=== PATIENT | male | born 1960 ===

== ENCOUNTER 2016-11-07 19:32 | Observation (INO) | payer MEDICAID, OTHER ==
[2016-11-07 19:40] VITALS: BP 135/96; RESP 17; TEMP 99.9
[2016-11-07] MEDS ORDERED: Clindamycin 300 MG in Sodium Chloride 0.9% 100 ML IVPB STA (19:58)
[2016-11-07] MEDS ORDERED: Vancomycin 1 g Inj ONE (20:05)
[2016-11-07] MEDS ORDERED: Sodium Chloride 0.9% 1,000 ML IV STA (20:10)
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
[2016-11-07 20:39] LABS: BASO # 0.1 K/uL (0.0-0.2); BASO % 1.2 % (0.0-2.0); EOS # 0.1 K/uL (0.0-0.7); EOS % 2.1 % (0.0-4.0); HEMOGLOBIN 13.8 g/dL (12.0-18.0); LYMPH % 49.1 % (20.0-40.0); MEAN CELL VOLUME 86.3 fl (80.0-94.0); MEAN CORPUSCULAR HEMOGLOBIN 28.9 pg (27.0-31.0); MEAN CORPUSCULAR HGB CONC 33.5 g/dL (33.0-37.0); MEAN PLATELET VOLUME 7.9 fl (7.2-11.7); MONO # 0.5 K/uL (0.0-0.8); MONO % 8.4 % (0.0-10.0); NEUT # 2.4 K/uL (1.8-7.0); NEUT % 39.2 % (50.0-75.0); NRBC % 0.1 % (0.0-0.0); RBC 4.78 Mil/uL (4.40-5.90); RED CELL DISTRIBUTION WIDTH 16.4 % (11.5-14.5); WHITE BLOOD COUNT 6.2 K/uL (4.8-10.8)
[2016-11-07 20:55] LABS: BARBITURATES, UR NEGATIVE (NEGATIVE); BENZODIAZEPINES, UR NEGATIVE (NEGATIVE); OPIATES, UR POSITIVE (NEGATIVE); PHENCYCLIDINE, UR NEGATIVE (NEGATIVE)
[2016-11-07 21:14] LABS: ALB/GLOB RATIO 1.1 (1.0-2.1); ALBUMIN 4.8 g/dL (3.5-5.0); ALT/SGPT 182 U/L (21-72); AST/SGOT 313 U/L (17-59); BLOOD UREA NITROGEN 8 mg/dl (9-20); CALCIUM 9.5 mg/dL (8.4-10.2); GFR AFRICAN-AMERICAN > 60; GFR NON-AFRICAN AMERICAN > 60
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
[2016-11-08 00:06] VITALS: PULSE 92; O2SAT 98
--- NOTE | 2016-11-08 11:13 | RAD ---
PROCEDURE: Left small (pinky) finger radiographs 11/07/2016 at 2200 hours. HISTORY: Post reduction COMPARISON: Comparison made with radiographs of the left hand 11/07/2016 at 1947 hours TECHNIQUE: AP radiograph of the left hand, as well as spot oblique and lateral images of left small finger were obtained through overlying radiopaque splint which partially obscures fine soft tissue and bone detail. . . FINDINGS: There has been interval reduction previously noted dorsal and laterally dislocated middle phalanx with respect to the proximal phalanx 5th finger. . There there is a small fracture fragment seen adjacent to the distal palmar surface of the proximal phalanx consistent with small avulsion fracture. There is a 2nd tiny smaller bony density adjacent within the dorsal soft tissues adjacent to the base of the proximal phalanx 5th finger. Soft tissue swelling is present. Impression: Interval reduction previously noted dorsal and laterally dislocated middle phalanx with respect to the proximal phalanx. Small fracture fragment seen adjacent to the palmar surface of the proximal phalanx 5th finger. There is a 2nd tiny suspected avulsion fracture fragment within the dorsal soft tissues adjacent to the base proximal phalanx 5th finger. Note this report was placed in PA review folder for followup.
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
== END 2016-11-08 00:05 | disposition home or self-care (01) ==
LOC: H.ER 19:32 → H.EROBSV 19:45
PROVIDERS: ADMIT Emergency Medicine; ATTEND Emergency Medicine
DX: S02.82XA Fracture of other specified skull and facial bones, left side, initial encounter for closed fracture (principal); S62.607A Fracture of unspecified phalanx of left little finger, initial encounter for closed fracture; Y04.0XXA Assault by unarmed brawl or fight, initial encounter; Y93.9 Activity, unspecified; Y92.9 Unspecified place or not applicable; Y99.9 Unspecified external cause status; S61.217A Laceration without foreign body of left little finger without damage to nail, initial encounter

== ENCOUNTER 2018-04-25 11:20 | Emergency (ER) | payer MEDICAID ==
[2018-04-25] MEDS ORDERED: Oxycodone/Acetaminophen 5/325 mg Tab PO STA (12:41)
--- NOTE | 2018-04-25 12:47 | ED PDOC ---
HPI: Back Time Seen by Provider: 04/25/18 12:08 Chief Complaint (Nursing): Back Pain Chief Complaint (Provider): Back Pain History Per: Patient History/Exam Limitations: no limitations Onset/Duration Of Symptoms: Days (x 1 month), Waxing/Waning Quality Of Discomfort: "Pain" Previous Symptoms: Back Pain Additional Complaint(s): 57 year old male with a history of anxiety and substance abuse presents to the ED with back pain associated with difficulty walking for the last month. Patient reports that he went to [facility] for back pain and inability to walk and was admitted for five days due to a spine infection. He was transferred for [facility] for a rehabilitation. He admits that he has ran out of pain medication and is still taking antibiotics PO. He take Clonidine for blood pressure as well as Gabapentin. Offers no other complaints. PMD: none provided - Risk Factors AAA Risk Factors: Pos: Older Than 49 Years Of Age Past Medical History Reviewed: Historical Data, Nursing Documentation, Vital Signs Vital Signs: Last Vital Signs Temp 99.6 F 04/25/18 11:24 Pulse 109 H 04/25/18 12:08 Resp 15 04/25/18 11:24 BP 131/78 04/25/18 11:24 Pulse Ox 98 04/25/18 11:24 - Medical History PMH: Anxiety Denies: Diabetes, Hepatitis, HIV, HTN, Chronic Kidney Disease, Seizures, Sexually Transmitted Disease - Surgical History Surgical History: No Surg Hx - Family History Family History: States: Unknown Family Hx - Immunization History Hx Tetanus Toxoid Vaccination: No Hx Influenza Vaccination: Yes Hx Pneumococcal Vaccination: No - Home Medications Home Medications: Ambulatory Orders Medication Instructions Recorded Gabapentin [Neurontin] 300 mg PO TID #90 cap 01/05/18 QUEtiapine [SEROquel] 50 mg PO HS #30 tab 01/05/18 cloNIDine [Catapres] 0.1 mg PO BID PRN #14 tab 01/05/18 traZODone [Desyrel] 150 mg PO HS PRN #30 tab 01/05/18 Ibuprofen [Motrin Tab] 600 mg PO Q6H #20 tab 02/16/18 Multivitamins [Hexavitamin] 1 tab PO DAILY tab 02/25/18 Thiamine [Vitamin B1 Tab] 100 mg PO DAILY tab 02/25/18 Cyclobenzaprine [Flexeril] 10 mg PO HS #7 tab 04/25/18 Naproxen 500 mg PO BID #30 tab 04/25/18 - Allergies Allergies/Adverse Reactions: Allergies Allergy/AdvReac Type Severity Reaction Status Date / Time Penicillins Allergy ITCHING Verified 04/21/18 12:35 Review of Systems ROS Statement: Except As Marked, All Systems Reviewed And Found Negative Musculoskeletal: Positive for: Back Pain (associated with difficulty walking ) Physical Exam - Reviewed Nursing Documentation Reviewed: Yes Vital Signs Reviewed: Yes - Physical Exam Appears: Positive for: No Acute Distress Head Exam: Positive for: ATRAUMATIC Skin: Positive for: Normal Color, Warm, Dry Eye Exam: Positive for: EOMI, Normal appearance, PERRL Neck: Positive for: Normal, Painless ROM, Supple Cardiovascular/Chest: Positive for: Regular Rate, Rhythm. Negative for: Murmur Respiratory: Positive for: Normal Breath Sounds. Negative for: Respiratory Distress Gastrointestinal/Abdominal: Positive for: Normal Exam, Soft. Negative for: Tenderness Back: Positive for: Other (lower back tenderness; negative straight leg test) Extremity: Positive for: Normal ROM (x 4). Negative for: Deformity Neurologic/Psych: Positive for: Alert, Oriented (x 3). Negative for: Motor/Sensory Deficits - ECG O2 Sat by Pulse Oximetry: 98 (RA) Pulse Ox Interpretation: Normal - Progress Re-evaluation Time: 14:53 Condition: Re-examined, Improved Medical Decision Making Medical Decision Makin:41 Impression: chronic back pain Initial plan: --Flexeril 10 mg PO --Toradol 30 mg IM --Percocet 1 tab PO Scribe Attestation: Documented by Georgette Gipson acting as a scribe for Jarod Kevin MD Provider Scribe Attestation: All medical record entries made by the Scribe were at my direction and personally dictated by me. I have reviewed the chart and agree that the record accurately reflects my personal performance of the history, physical exam, medical decision making, and the department course for this patient. I have also personally directed, reviewed, and agree with the discharge instructions and disposition. Disposition - Clinical Impression Clinical Impression: Back pain - Patient ED Disposition Is Patient to be Admitted: No Doctor Will See Patient In The: Office Counseled Patient/Family Regarding: Studies Performed, Diagnosis, Need For Followup - Disposition Referrals: [facility] [Outside] Disposition: Routine/Home Disposition Time: 14:56 Condition: GOOD Additional Instructions: TORO LARES, thank you for letting us take care of you today. Your provider was Jarod Kevin MD and you were treated for BACK PAIN. The emergency medical care you received today was directed at your acute symptoms. If you were prescribed any medication, please fill it and take as directed. It may take several days for your symptoms to resolve. Return to the Emergency Department if your symptoms worsen, do not improve, or if you have any other problems. Please contact your doctor or call one of the physicians/clinics you have been referred to that are listed on the Patient Visit Information form that is included in your discharge packet. Bring any paperwork you were given at discharge with you along with any medications you are taking to your follow up visit. Our treatment cannot replace ongoing medical care by a primary care provider outside of the emergency department. Thank you for allowing the [facility] team to be part of your care today. If you had an X-Ray or CT scan: A Radiologist will review the ED reading if any change in treatment is needed we will contact you. If you had a blood, urine, or wound culture: It will take several days for the results, if any change in treatment is needed we will contact you. If you had an STI test: It will take 48 hours for the results. Please call after 1 week if you have not heard back. Instructions: Low Back Pain (DC)
[2018-04-25] MEDS ORDERED: Oxycodone/Acetaminophen 5/325 mg Tab ONE (12:50)
[2018-04-25 15:40] VITALS: BP 109/66; PULSE 101; RESP 16; TEMP 98.8; O2SAT 96
== END 2018-04-25 16:00 | disposition home or self-care (01) ==
LOC: H.ER 11:20
DX: M54.9 Dorsalgia, unspecified (principal); G89.29 Other chronic pain; Z88.0 Allergy status to penicillin
CPT/HCPCS: 96372; 99284; J1885

== ENCOUNTER 2018-05-12 16:28 | Inpatient (IN) | payer MEDICAID ==
[2018-05-12] MEDS ORDERED: Naloxone 0.4 mg/ml Inj (Adult) IVP ONE (17:48)
[2018-05-12] MEDS ORDERED: Sodium Chloride 0.9% 1,000 ML IV STA ×2 (17:48→19:19)
[2018-05-12] MEDS ORDERED: Naloxone 0.4 mg/ml Inj (Adult) IVP STA ×2 (18:01→18:28)
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
[2018-05-12 18:52] LABS: BASO % 0.3 % (0.0-2.0); EOS % 0.3 % (0.0-4.0); HEMOGLOBIN 11.4 g/dL (12.0-18.0); LYMPH % 20.9 % (20.0-40.0); MEAN CELL VOLUME 83.7 fl (80.0-94.0); MEAN CORPUSCULAR HEMOGLOBIN 27.3 pg (27.0-31.0); MEAN CORPUSCULAR HGB CONC 32.6 g/dL (33.0-37.0); MEAN PLATELET VOLUME 8.4 fl (7.2-11.7); MONO # 0.9 K/uL (0.0-0.8); MONO % 9.1 % (0.0-10.0); NEUT # 6.6 K/uL (1.8-7.0); NEUT % 69.4 % (50.0-75.0); NRBC % 0.1 % (0.0-0.0); RBC 4.17 Mil/uL (4.40-5.90); RED CELL DISTRIBUTION WIDTH 15.3 % (11.5-14.5); WHITE BLOOD COUNT 9.5 K/uL (4.8-10.8)
[2018-05-12 19:02] LABS: ALBUMIN 4.6 g/dL (3.5-5.0); ALT/SGPT 34 U/L (21-72); AST/SGOT 51 U/L (17-59); BLOOD UREA NITROGEN 13 mg/dl (9-20); CALCIUM 9.7 mg/dL (8.4-10.2); GFR NON-AFRICAN AMERICAN > 60
[2018-05-12] MEDS ORDERED: Potassium Chloride 20 mEq ER Tab PO ONE ×2 (19:20→22:35)
--- NOTE | 2018-05-12 19:34 | ED PDOC ---
- Laboratory Results Result Diagrams: 05/12/18 18:37 05/12/18 18:37 Lab Results: Total Bilirubin 1.1 mg/dl (0.2-1.3) 05/12/18 18:37 AST 51 U/L (17-59) 05/12/18 18:37 ALT 34 U/L (21-72) 05/12/18 18:37 Alkaline Phosphatase 137 U/L (38-126) H 05/12/18 18:37 Total Protein 9.3 G/DL (6.3-8.2) H 05/12/18 18:37 Albumin 4.6 g/dL (3.5-5.0) 05/12/18 18:37 Globulin 4.7 gm/dL (2.2-3.9) H 05/12/18 18:37 Albumin/Globulin Ratio 1.0 (1.0-2.1) 05/12/18 18:37 - ECG O2 Sat by Pulse Oximetry: 96 (RA) Pulse Ox Interpretation: Normal Medical Decision Making Medical Decision Making: Time: 190 --Patient is still tachycardic with an anion gap of 23. Patient signed out to this provider by Dr. Martinez, pending dissolution of tachycardia and anion gap, then reevaluation. Time: 14 --CTA chest FINDINGS: Bilateral basilar atelectatic airspace disease of the lower lobes. Mild subsegmental consolidation of the right lower lobe. Normal enhancement of the main pulmonary artery and right and left pulmonary arteries. Normal enhancement of the bilateral peripheral pulmonary arteries. There is no demonstrated pulmonary embolism. Normal thoracic aorta and visualized great vessels. There is no demonstrated aortic dissection. Normal heart and pericardium. Normal mediastinum. Normal hilar regions. Normal visualized trachea and thickening bronchi. The remaining lungs are well expanded. Normal remaining pulmonary parenchyma. Normal pleura. Normal chest wall structures. Normal osseous structures. Mild hepatomegaly. IMPRESSION: No demonstrated pulmonary embolism or arterial dissection. Bilateral basilar atelectatic airspace disease of the lower lobes. Mild subsegmental consolidation of the right lower lobe. This can be secondary to subsegmental atelectasis. Differential diagnosis includes a developing pneumonia. Look to patient presentation, such as presence or absence of fever and leukocytosis for confirmation of which is more likely in this particular patient presently, recognizing that both conditions occasionally exist at the same time. Time: 0037 --Given patient's presentation of overdose, provider suspects aspiration pneumonia. Patient had recent hospital admission, may also relate to healthcare- associated pneumonia. Patient to be admitted for further treatment. Case discussed with Dr. Carmona who accepts patient. Clinical Impression: Healthcare-associated pneumonia Scribe Attestation: Documented by Laureen Palmer and Marbella Serna, acting as scribes for Michel Arellano MD Provider Scribe Attestation: All medical record entries made by the Scribe were at my direction and personally dictated by me. I have reviewed the chart and agree that the record accurately reflects my personal performance of the history, physical exam, medical decision making, and the department course for this patient. I have also personally directed, reviewed, and agree with the discharge instructions and disposition. Disposition Discussed With : Jesus Mnauel Carmona Counseled Patient/Family Regarding: Studies Performed, Diagnosis - Clinical Impression Clinical Impression: HCAP (healthcare-associated pneumonia) - POA Present On Arrival: None - Disposition Disposition: Admitted as In-Patient Disposition Time: 00:37 Condition: FAIR Forms: [employer] (Citizen Of [place])
[2018-05-12 19:38] LABS: ABG ALLEN TEST YES; ARTERIAL BLOOD GAS HCO3 25.2 mmol/L (21-28); ARTERIAL BLOOD GAS O2 SAT 90.9 % (95-98); ARTERIAL BLOOD GAS PCO2 40 mm/Hg (35-45); ARTERIAL BLOOD GAS PH 7.41 (7.35-7.45); ARTERIAL BLOOD GAS PO2 52 mm/Hg (80-100); ARTERIAL BLOOD GAS TCO2 26.6 mmol/L (22-28)
[2018-05-12] MEDS ORDERED: Iodixanol 320 MG/ML 100 ML BOTTLE IV ONE (23:06)
[2018-05-12] MEDS ORDERED: Sodium Chloride 0.9% 50 ML IV ONE (23:06)
[2018-05-13] MEDS ORDERED: Gentamicin 80 mg/2mL Inj. IVPB STA (00:29)
[2018-05-13] MEDS ORDERED: Ciprofloxacin 400mg/200ml D5W 400 MG/200 ML BAG IVPB STA (00:29)
[2018-05-13] MEDS ORDERED: Clindamycin 150 mg/mL Inj IV STA (00:34)
[2018-05-13] MEDS ORDERED: Clindamycin 600mg/50ml D5W 600 MG/50 ML VIAL IVPB STA (00:36)
[2018-05-13] MEDS ORDERED: Ciprofloxacin 400mg/200ml D5W 400 MG/200 ML BAG IVPB ONE (00:47)
[2018-05-13] MEDS ORDERED: Gentamicin 420 MG in Sodium Chloride 0.9% 100 ML IVPB ONE (01:30)
[2018-05-13] MEDS ORDERED: guaiFENesin DM 200 mg-20 mg/10 ml UD PO PRN (05:47)
[2018-05-13] MEDS: Dextrose 5%/Lactated Ringer's 1,000 ML IV SCH (06:37)
--- NOTE | 2018-05-13 09:39 | CT ---
Date of service: 05/12/2018 PROCEDURE: CT Chest with contrast (Pulmonary Angiogram) HISTORY: chest pain r/o PE COMPARISON: None available. TECHNIQUE: Axial computed tomography images were obtained of the chest in the pulmonary arterial phase of enhancement. Coronal and sagittal reformatted images were created and reviewed. Intravenous contrast dose: Visipaque 320, 90 cc Radiation dose: Total exam DLP = 283.48 mGy-cm. This CT exam was performed using one or more of the following dose reduction techniques: Automated exposure control, adjustment of the mA and/or kV according to patient size, and/or use of iterative reconstruction technique. FINDINGS: PULMONARY ARTERIES: Somewhat suboptimal contrast opacification of the central pulmonary arteries with opacification appearing slightly less than the aorta. No prominent central pulmonary embolus appreciable. No severe segmental pulmonary artery filling defects appreciable. AORTA: No acute findings. No thoracic aortic aneurysm. Calcific atherosclerotic changes are seen related to the thoracic aorta. LUNGS: Limited right lower lobe infiltrate may be developing with remaining lung alegria clear. Central airways are clear.. A 2.7 mm noncalcified nodule is seen at the right upper lobe and image 45 series 5 with no additional masses bilaterally. PLEURAL SPACES: Unremarkable. No effusion or pneumothorax. HEART: Unremarkable. No cardiomegaly. No significant pericardial effusion. LYMPH NODES: No lymphadenopathy. BONES, CHEST WALL: Unremarkable. No fracture or destructive lesion warranted. OTHER FINDINGS: Unremarkable. IMPRESSION: Somewhat suboptimal pulmonary arterial enhancement with no gross pulmonary embolus identified as discussed above. Lesser evaluation of the segmental pulmonary artery branches. Village perfusion lung scan available for follow-up if clinically. Potential early development of right lower lobe pulmonary infiltrate. Remaining lung alegria clear of active airspace disease. 2.7 mm noncalcified nodule right upper lobe. Preliminary report provided by Angelito, 05/13/1911 15 a.m..
[2018-05-13] MEDS ORDERED: Albuterol-Ipratrop 3 mg / 0.5 (3 ml) UD ONE ×2 (13:18→16:10)
[2018-05-13] MEDS ORDERED: guaiFENesin 100 mg/5 ml Syrup UD ONE (13:19)
[2018-05-13] MEDS: Albuterol-Ipratrop 3 mg / 0.5 (3 ml) UD INH SCH ×2 (13:29→16:10)
[2018-05-13] MEDS: guaiFENesin DM 200 mg-20 mg/10 ml UD PO SCH ×3 (13:29→23:13)
--- NOTE | 2018-05-13 13:38 | CP.PCM.CON ---
History of Present Illness - History of Present Illness History of Present Illness: 57 year old male private patient of Dr Carmona with a history of frequent IV heroin drug abuse presents to the ED for evaluation of back pain and cough. Referred for ID evaluation for developing pneumonia Has hx of diskitis treated at and [facility] for 8 weeks with IV antibiotics At that time grew Strep Mitis LILIAN however was negative Was treated with IV Rocephin and improved - Medical History PMH: Anxiety Denies: Diabetes, Hepatitis, HIV, HTN, Seizures, Sexually Transmitted Disease - [facility] Procedures DETOXIFICATION SERVICES FOR SUBSTANCE ABUSE TREATMENT (12/31/17) GROUP MECHANICAL ENGINEERING MANAGER FOR SUBSTANCE ABUSE TREATMENT, PSYCHOEDUCATION (12/31/17) GROUP MECHANICAL ENGINEERING MANAGER FOR SUBSTANCE ABUSE, COGNITIVE BEHAVIORAL (12/31/17) GROUP PSYCHOTHERAPY (12/31/17) INDIV MECHANICAL ENGINEERING MANAGER FOR SUBSTANCE ABUSE TREATMENT, PSYCHOEDUCATION (08/28/16) INDIV MECHANICAL ENGINEERING MANAGER FOR SUBSTANCE ABUSE, COGNITIVE BEHAVIORAL (08/28/16) INDIV PSYCHOTHERAPY FOR SUBSTANCE ABUSE TREATMENT, SUPPORT (12/31/17) INDIV PSYCHOTHERAPY FOR SUBSTANCE ABUSE, COGNITIV BEHAVIORAL (12/31/17) INDIV PSYCHOTHERAPY FOR SUBSTANCE ABUSE, PSYCHOEDUCATION (12/31/17) INDIVIDUAL PSYCHOTHERAPY, COGNITIVE-BEHAVIORAL (12/31/17) INDIVIDUAL PSYCHOTHERAPY, SUPPORTIVE (12/31/17) Review of Systems - Review of Systems All systems: reviewed and no additional remarkable complaints except - Constitutional Constitutional: As Per HPI - EENT Eyes: absent: As Per HPI, Blind Spots, Blurred Vision, Change in Vision, Decreased Night Vision, Diplopia, Discharge, Dry Eye, Exophthalmos, Floaters, Irritation, Itchy Eyes, Loss of Peripheral Vision, Pain, Photophobia, Requires Corrective Lenses, Sees Flashes, Spots in Vision, Tunnel Vision, Other Visual Disturbances, Loss of Vision, Other Ears: absent: As Per HPI, Decreased Hearing, Ear Discharge, Ear Pain, Tinnitus, Abnormal Hearing, Disequilibrium, Dizziness, Other Nose/Mouth/Throat: absent: As Per HPI, Epistaxis, Nasal Congestion, Nasal Discharge, Nasal Obstruction, Nasal Trauma, Nose Pain, Post Nasal Drip, Sinus Pain, Sinus Pressure, Bleeding Gums, Change in Voice, Dental Pain, Dry Mouth, D ysphagia, Halitosis, Hoarsness, Lip Swelling, Mouth Lesions, Mouth Pain, Odynophagia, Sore Throat, Throat Swelling, Tongue Swelling, Facial Pain, Neck Pain, Neck Mass, Other - Cardiovascular Cardiovascular: absent: As Per HPI, Acrocyanosis, Chest Pain, Chest Pain at Rest, Chest Pain with Activity, Claudication, Diaphoresis, Dyspnea, Dyspnea on Exertion, Edema, Irregular Heart Rhythm, Pain Radiating to Arm/Neck/Jaw, Leg Edema, Leg Ulcers, Lightheadedness, Orthopnea, Palpitations, Paroxysmal Nocturnal Dyspnea, Pedal Edema, Radiating Pain, Rapid Heart Rate, Slow Heart Rate, Syncope, Other - Respiratory Respiratory: Cough - Gastrointestinal Gastrointestinal: absent: As Per HPI, Abdominal Pain, Belching, Bloating, Change in Bowel Habits, Change in Stool Character, Coffee Ground Emesis, Constipation, Cramping, Diarrhea, Dyspepsia, Dysphagia, Early Satiety, Excessive Flatus, Fecal Incontinence, Heartburn, Hematemesis, Hematochezia, Loose Stools, Melena, Nausea, Odynophagia, Temesmus, Vomiting, Other - Genitourinary Genitourinary: absent: As Per HPI, Change in Urinary Stream, Difficulty Urinating, Dysuria, Flank Pain, Hematuria, Pyuria, Nocturia, Urinary Incontinence, Urinary Frequency, Urinary Hesitance, Urinary Urgency, Voiding Fr eq/Small Amts, Freq UTI, Hx Renal/Bladder Calculi, Hx /Renal Surgery, Bladder Distension, Other - Musculoskeletal Musculoskeletal: As Per HPI, Arthralgias, Limited Range of Motion, Radiating Pain into Limb - Integumentary Integumentary: absent: As Per HPI, Acne, Alopecia, Bleeding Lesions, Change in Hair, Change in Nails, Change in Pigmentation, Changing Lesions, Dry Skin, Erythema, Furuncle, Hirsutism, Lesions, New Lesions, Non-Healing Lesions, Photosensitivity, Pruritus, Rash, Skin Pain, Skin Ulcer, Sores, Striae, Swelling, Unusual Bruising, Wounds, Jaundice, Other - Neurological Neurological: absent: As Per HPI, Abnormal Gait, Abnormal Hearing, Abnormal Movements, Abnormal Speech, Behavioral Changes, Burning Sensations, Confusion, Convulsions, Disequilibrium, Dizziness, Numbness, Focal Weakness, Frequent Falls, Headaches, Lack of Coordination, Loss of Vision, Memory Loss, Paresthesias, Radicular Pain, Restless Legs, Sensory Deficit, Syncope, Tingling, Tremor, Vertigo, Weakness, Other Visual Disturbances, Other - Psychiatric Psychiatric: absent: As Per HPI, Abnormal Sleep Pattern, Anhedonia, Anxiety, Auditory Hallucinations, Behavioral Changes, Change in Appetite, Change in Libido, Confusion, Depression, Difficulty Concentrating, Hallucinations, Homicidal Ideation, Hopelessness, Irritability, Memory Loss, Mood Swings, Panic Attacks, Paranoia, Suicidal Ideation, Visual Hallucinations, Tactile Hallucinations, Other - Endocrine Endocrine: absent: As Per HPI, Change in Body Appearance, Change in Libido, Cold Intolorance, Deepening of Voice, Excessive Sweating, Fatigue, Flushing, Heat Intolorance, Increase in Ring/Shoe/Hat Size, Palpitations, Polydipsia, Polyphagia, Polyuria, Other - Hematologic/Lymphatic Hematologic: absent: As Per HPI, Easy Bleeding, Easy Bruising, Lymphadenopathy, Other Past Patient History - Infectious Disease Hx of Infectious Diseases: None - Past Medical History & Family History Past Medical History?: No - Past Social History Alcohol: Other (patient is an alcoholic) Drugs: Other (Heroin ) - CARDIAC Hx Hypertension: No - NEUROLOGICAL Hx Seizures: No - HEENT Hx HEENT Problems: No - RENAL Hx Chronic Kidney Disease: No - ENDOCRINE/METABOLIC Hx Endocrine Disorders: No - HEMATOLOGICAL/ONCOLOGICAL Hx Human Immunodeficiency Virus (HIV): No - INTEGUMENTARY Hx Dermatological Problems: No - MUSCULOSKELETAL/RHEUMATOLOGICAL Hx Falls: No - GASTROINTESTINAL Hx Gastrointestinal Disorders: No - GENITOURINARY/GYNECOLOGICAL Hx Sexually Transmitted Disorders: No - PSYCHIATRIC Hx Anxiety: Yes - SURGICAL HISTORY Hx Surgeries: No - ANESTHESIA Hx Anesthesia: No Meds Allergies/Adverse Reactions: Allergies Allergy/AdvReac Type Severity Reaction Status Date / Time Penicillins Allergy ITCHING Verified 04/21/18 12:35 - Medications Medications: Current Medications Acetaminophen (Tylenol 325mg Tab) 650 mg PO Q4 PRN PRN Reason: Fever >100.4 F Last Admin: 05/13/18 11:52 Dose: 650 mg Albuterol/Ipratropium (Duoneb 3 Mg/0.5 Mg (3 Ml) Ud) 3 ml INH RQID [facility] Last Admin: 05/13/18 13:29 Dose: 3 ml Guaifenesin/Dextromethorphan (Robitussin Dm) 10 ml PO QID [facility] Last Admin: 05/13/18 13:29 Dose: 10 ml Gentamicin Sulfate 420 mg/ (Sodium Chloride) 110.5 mls @ 110.5 mls/hr IVPB DAILY@0300 [facility]; Protocol Dextrose/Lactated Ringer's (Dextrose 5%/Lactated Ringer's) 1,000 mls @ 100 mls/hr IV .Q10H [facility] Stop: 05/14/18 05:50 Last Admin: 05/13/18 06:37 Dose: 100 mls/hr Vancomycin HCl 1.25 gm/ Sodium (Chloride) 250 mls @ 166.667 mls/hr IVPB Q12@0400,1600 [facility]; Protocol Physical Exam - Constitutional Appears: Non-toxic, No Acute Distress, Chronically Ill - Head Exam Head Exam: ATRAUMATIC, NORMAL INSPECTION, NORMOCEPHALIC - Eye Exam Eye Exam: EOMI, PERRL. absent: Scleral icterus Pupil Exam: NORMAL ACCOMODATION - ENT Exam ENT Exam: Mucous Membranes Dry - Neck Exam Neck exam: Negative for: Lymphadenopathy - Respiratory Exam Respiratory Exam: Decreased Breath Sounds, Rhonchi - Cardiovascular Exam Cardiovascular Exam: REGULAR RHYTHM, +S1, +S2 - GI/Abdominal Exam GI & Abdominal Exam: Diminished Bowel Sounds, Soft. absent: Tenderness - Rectal Exam Rectal Exam: Deferred - Exam Exam: NORMAL INSPECTION - Extremities Exam Extremities exam: Positive for: pedal pulses present. Negative for: calf tenderness, pedal edema, tenderness - Back Exam Back exam: absent: CVA tenderness (L), CVA tenderness (R), paraspinal tenderness - Neurological Exam Neurological exam: Alert, CN II-XII Intact, Oriented x3 - Psychiatric Exam Psychiatric exam: Depressed - Skin Skin Exam: Dry Results - Vital Signs Recent Vital Signs: Last Vital Signs Temp 101.8 F H 05/13/18 12:56 Pulse 102 H 05/13/18 12:56 Resp 19 05/13/18 12:56 BP 128/78 05/13/18 12:56 Pulse Ox 98 05/13/18 12:56 - Labs Result Diagrams: 05/12/18 18:37 05/12/18 18:37 Labs: Laboratory Results - last 24 hr 05/12/18 05/12/18 05/12/18 18:37 18:37 19:34 WBC 9.5 D RBC 4.17 L Hgb 11.4 L Hct 34.9 L MCV 83.7 D MCH 27.3 MCHC 32.6 L RDW 15.3 H Plt Count 207 D MPV 8.4 Neut % (Auto) 69.4 Lymph % (Auto) 20.9 [place] % (Auto) 9.1 Eos % (Auto) 0.3 Baso % (Auto) 0.3 Neut # (Auto) 6.6 Lymph # (Auto) 2.0 [place] # (Auto) 0.9 H Eos # (Auto) 0.0 Baso # (Auto) 0.0 pCO2 40 pO2 52 L HCO3 25.2 ABG pH 7.41 ABG Total CO2 26.6 ABG O2 Saturation 90.9 L ABG Base Excess 0.7 Dylan Test Yes ABG Potassium 3.3 L A-a O2 Difference 48.0 Glucose 99 Lactate 1.7 FiO2 21.0 Sodium 136 136.0 Potassium 3.2 L Chloride 96 L 105.0 Carbon Dioxide 17 L Anion Gap 26 H BUN 13 Creatinine 0.8 Est GFR ( Amer) > 60 Est GFR (Non-Af Amer) > 60 Random Glucose 123 H Calcium 9.7 Total Bilirubin 1.1 AST 51 ALT 34 Alkaline Phosphatase 137 H Total Protein 9.3 H Albumin 4.6 Globulin 4.7 H Albumin/Globulin Ratio 1.0 Arterial Blood Potassium 3.3 L Assessment & Plan (1) HCAP (healthcare-associated pneumonia) Status: Acute (2) Opiate dependence Status: Acute (3) Osteomyelitis of lumbar spine Status: Acute (4) Septic discitis of lumbar region Status: Acute - Assessment and Plan (Free Text) Assessment: 57 year old male private patient of Dr Carmona with a history of frequent IV heroin drug abuse presents to the ED for evaluation of back pain and cough. Referred for ID evaluation for developing pneumonia Has hx of diskitis treated at [facility] for 8 weeks with IV antibiotics At that time grew Strep Mitis LILIAN however was negative Was treated with IV Rocephin and improved however still c/o low back pain Patient has been cultured up and started on IV antibiotics Will need follow up imaging of LS spine, await sputum cultures and blood cultures continue IV antibiotics
--- NOTE | 2018-05-13 14:29 | CP.PCM.HP ---
<Sultan Geovanni - Last Filed: 05/13/18 15:01> History of Present Illness - History of Present Illness History of Present Illness: CC: Cough and lower back pain HPI: 57 year old homeless man with PMHx IV heroin use disorder, alcohol use disorder, Anemia, thrombocytopenia and recent hx osteomyelitis/discitis of lumbar spine that required 2 months of IV abx (finished on 04/17/18) admitted for RLL pneumonia and back pain. Patient reports productive cough and subjective fever for 5 days. States he slept on the floor at the [facility] for few days and started to get lower back pain. Denies any injury to back. Patient reports he has not used any heroine/cocaine for 2 months but per ER nurse he admitted to use 2 bags of cocaine. In ER, Chest CT shows potential early development of right lower lobe pulmonary infiltrate. Patient seen and examined this morning with Dr. Carmona. Admits to drinking alcohol 2 days ago. Denies any chest pain, headache or dizziness. ROS: All 12 systems reviewed and negative except as mentioned in HPI. PMHx: Heroin use disorder, Alcohol use disorder, anemia, thrombocytopenia, OM/Discitis of LS spine, anxiety PsHx: denies Family hx: noncontributory Social hx: homeless, IV heroin use, ETOH use. Denies smoking cigarettes Allergies: PCN Medications: in chart and reviewed Present on Admission - Present on Admission Any Indicators Present on Admission: No Review of Systems - Review of Systems All systems: reviewed and no additional remarkable complaints except Past Patient History - Infectious Disease Hx of Infectious Diseases: None - Past Medical History & Family History Past Medical History?: No - Past Social History Alcohol: Other (patient is an alcoholic) Drugs: Other (Heroin ) - CARDIAC Hx Hypertension: No - NEUROLOGICAL Hx Seizures: No - HEENT Hx HEENT Problems: No - RENAL Hx Chronic Kidney Disease: No - ENDOCRINE/METABOLIC Hx Endocrine Disorders: No - HEMATOLOGICAL/ONCOLOGICAL Hx Human Immunodeficiency Virus (HIV): No - INTEGUMENTARY Hx Dermatological Problems: No - MUSCULOSKELETAL/RHEUMATOLOGICAL Hx Falls: No - GASTROINTESTINAL Hx Gastrointestinal Disorders: No - GENITOURINARY/GYNECOLOGICAL Hx Sexually Transmitted Disorders: No - PSYCHIATRIC Hx Anxiety: Yes - SURGICAL HISTORY Hx Surgeries: No - ANESTHESIA Hx Anesthesia: No Meds Allergies/Adverse Reactions: Allergies Allergy/AdvReac Type Severity Reaction Status Date / Time Penicillins Allergy ITCHING Verified 04/21/18 12:35 Physical Exam - Constitutional Appears: Non-toxic, No Acute Distress - Head Exam Head Exam: NORMAL INSPECTION - Eye Exam Eye Exam: Normal appearance - ENT Exam ENT Exam: Mucous Membranes Moist - Neck Exam Neck exam: Positive for: Normal Inspection. Negative for: Meningismus - Respiratory Exam Respiratory Exam: Prolonged Expiratory Phase, Rhonchi, NORMAL BREATHING PATTERN. absent: Accessory Muscle Use, Wheezes, Respiratory Distress Additional comments: increased bronchial breath sounds. No wheezing. - Cardiovascular Exam Cardiovascular Exam: REGULAR RHYTHM, +S1, +S2 - GI/Abdominal Exam GI & Abdominal Exam: Normal Bowel Sounds, Soft. absent: Tenderness - Extremities Exam Extremities exam: Positive for: normal inspection. Negative for: calf tenderness, pedal edema - Neurological Exam Neurological exam: Alert, Oriented x3 - Psychiatric Exam Psychiatric exam: Normal Affect, Normal Mood - Skin Skin Exam: Normal Color Results - Vital Signs Recent Vital Signs: Last Vital Signs Temp 101.8 F H 05/13/18 12:56 Pulse 102 H 05/13/18 12:56 Resp 19 05/13/18 12:56 BP 128/78 05/13/18 12:56 Pulse Ox 98 05/13/18 12:56 - Labs Result Diagrams: 05/12/18 18:37 05/12/18 18:37 Labs: Laboratory Results - last 24 hr 05/12/18 05/12/18 05/12/18 18:37 18:37 19:34 WBC 9.5 D RBC 4.17 L Hgb 11.4 L Hct 34.9 L MCV 83.7 D MCH 27.3 MCHC 32.6 L RDW 15.3 H Plt Count 207 D MPV 8.4 Neut % (Auto) 69.4 Lymph % (Auto) 20.9 [place] % (Auto) 9.1 Eos % (Auto) 0.3 Baso % (Auto) 0.3 Neut # (Auto) 6.6 Lymph # (Auto) 2.0 [place] # (Auto) 0.9 H Eos # (Auto) 0.0 Baso # (Auto) 0.0 pCO2 40 pO2 52 L HCO3 25.2 ABG pH 7.41 ABG Total CO2 26.6 ABG O2 Saturation 90.9 L ABG Base Excess 0.7 Dylan Test Yes ABG Potassium 3.3 L A-a O2 Difference 48.0 Glucose 99 Lactate 1.7 FiO2 21.0 Sodium 136 136.0 Potassium 3.2 L Chloride 96 L 105.0 Carbon Dioxide 17 L Anion Gap 26 H BUN 13 Creatinine 0.8 Est GFR ( Amer) > 60 Est GFR (Non-Af Amer) > 60 Random Glucose 123 H Calcium 9.7 Total Bilirubin 1.1 AST 51 ALT 34 Alkaline Phosphatase 137 H Total Protein 9.3 H Albumin 4.6 Globulin 4.7 H Albumin/Globulin Ratio 1.0 Arterial Blood Potassium 3.3 L Assessment & Plan (1) Hospital acquired PNA Status: Acute (2) Lower back pain Status: Acute (3) Hx of osteomyelitis Status: Chronic (4) Alcohol use disorder Status: Chronic (5) Heroin use disorder, severe Status: Chronic - Assessment and Plan (Free Text) Assessment: 57 year old homeless man with PMHx IV heroin use disorder, alcohol use disorder, Anemia, thrombocytopenia and recent hx osteomyelitis/discitis of lumbar spine that required 2 months of IV abx (finished on 04/17/18) admitted for RLL pneumonia and back pain. Chest CT shows potential early development of right lower lobe pulmonary infiltrate. Plan: Hospital acquired pneumonia: Chest CT: potential early development of right lower lobe pulmonary infiltrate. No definitive PE. Wbc: 9.5 Febrile with slight tachycardia -s/p clindamycin, gentamycin and vancomycin in ER -ID consult, Dr. Tyler, recs appreciated. -c/w vancomycin and Cefepime -f/u AM labs, blood cx Lower Back pain -hx OM /discitis of lumbar spine on 01/2018. -ID on broad -c/w IV abx -f/u CT Lumbar spine Hypokalemia: -K: 3.2 -S/P 20 kcl in ED -give 20 kcl -f/u am labs Hx heroin/alcohol use disorders -f/u UDS -Blood alcohol level -rest of the plan as ordered Patient seen, examined and plan d/w Dr. Mathew Galarza, [id number] <Jesus Manuel Carmona - Last Filed: 05/16/18 10:31> Present on Admission - Present on Admission History of DVT/PE: No History of Uncontrolled Diabetes: No Urinary Catheter: No Decubitus Ulcer Present: No Results - Vital Signs Recent Vital Signs: Last Vital Signs Temp 97.8 F 05/16/18 09:14 Pulse 85 05/16/18 09:14 Resp 20 05/16/18 09:14 BP 125/73 05/16/18 09:14 Pulse Ox 96 05/16/18 09:14 - Labs Result Diagrams: 05/16/18 05:45 05/16/18 05:45 Labs: Laboratory Results - last 24 hr 05/16/18 05/16/18 05:45 05:45 WBC 2.5 L RBC 3.38 L Hgb 9.2 L Hct 27.4 L MCV 81.1 MCH 27.3 MCHC 33.7 RDW 14.8 H Plt Count 87 L MPV 7.4 Neut % (Auto) 51.3 Lymph % (Auto) 30.4 [place] % (Auto) 14.6 H Eos % (Auto) 3.3 Baso % (Auto) 0.4 Neut # (Auto) 1.3 L Lymph # (Auto) 0.7 L [place] # (Auto) 0.4 Eos # (Auto) 0.1 Baso # (Auto) 0.0 Sodium 136 Potassium 4.4 Chloride 98 Carbon Dioxide 30 Anion Gap 12 BUN 8 L Creatinine 0.6 L Est GFR ( Amer) > 60 Est GFR (Non-Af Amer) > 60 Random Glucose 110 Calcium 8.9 Total Bilirubin 0.5 AST 42 ALT 34 Alkaline Phosphatase 89 Total Protein 7.1 Albumin 3.2 L Globulin 3.8 Albumin/Globulin Ratio 0.8 L Assessment & Plan - Assessment and Plan (Free Text) Plan: I was present during evaluation and discussed with Dr Geovanni vivas plans of care and mgt.
[2018-05-13] MEDS ORDERED: Potassium Chloride 20 mEq ER Tab PO ONE (14:58)
[2018-05-13 15:22] LABS: BARBITURATES, UR NEGATIVE (NEGATIVE); BENZODIAZEPINES, UR NEGATIVE (NEGATIVE); OPIATES, UR POSITIVE (NEGATIVE)
[2018-05-13 15:24] LABS: PHENCYCLIDINE, UR NEGATIVE (NEGATIVE)
--- NOTE | 2018-05-13 15:43 | US ---
Date of service: 05/13/2018 PROCEDURE: Bilateral lower extremity venous duplex Doppler. HISTORY: r/o dvt leg swelling recent hospitalization COMPARISON: None available. TECHNIQUE: Bilateral common femoral, superficial femoral, popliteal and posterior tibial veins were evaluated. Flow was assessed with color Doppler, compressibility, assessment of phasic flow and augmentation response. FINDINGS: COMMON FEMORAL VEIN: Right CFV: Unremarkable. Left CFV: Unremarkable. SUPERFICIAL FEMORAL VEIN: Right SFV: Unremarkable. Left SFV: Unremarkable. POPLITEAL VEIN: Right Popliteal: Unremarkable. Left Popliteal: Unremarkable. POSTERIOR TIBIAL VEIN: Right PTV: Unremarkable. Left PTV: Unremarkable. OTHER FINDINGS: None. IMPRESSION: No evidence of deep venous thrombosis.
--- NOTE | 2018-05-13 16:30 | CT ---
Date of service: 05/13/2018 PROCEDURE: CT Lumbar Spine without contrast HISTORY: back pain hx of diskitis ( treated ) COMPARISON: None available. TECHNIQUE: Axial computed tomography images were obtained of the lumbar spine without the use of intravenous contrast. Coronal and sagittal reformatted images were created and reviewed. Radiation dose: Total exam DLP = 657.17 mGy-cm. This CT exam was performed using one or more of the following dose reduction techniques: Automated exposure control, adjustment of the mA and/or kV according to patient size, and/or use of iterative reconstruction technique. FINDINGS: VERTEBRAE: Straightened lumbar curvature without fracture identified. There is marked sclerosis of the inferior portion of the L5 vertebral body in the upper portion of the S1 vertebral body with irregular margins at the upper endplate of S1 suspicious for potential discitis as known this patient's prior history. Overall pattern could reflect sequelae from prior therapy particularly if this is recent. Follow-up MRI is advised to exclude fluid within the disc space. Limited spondylolisthesis with L5 posterior to S1. Some reactive changes are present in the prevertebral and paraspinal soft tissues anteriorly, relative to the L5 and S1 vertebral bodies. DISCS/SPINAL CANAL/NEURAL FORAMINA: L1-2: Unremarkable. L2-3: Unremarkable. L3-4: Circumferential disc bulging is appreciated with limited facet joint degenerative changes resulting in moderate central canal stenosis a mild bilateral neural foraminal stenosis. L4-5: Circumferential disc osteophyte complex is identified moderate facet joint degenerative changes to cause moderate central canal stenosis as well at this level. Moderate bilateral degenerative neural foraminal stenosis is appreciated. L5-S1: Limited grade 1 spondylolisthesis without significant central stenosis however. Mild bilateral degenerative neural foraminal stenosis. Prevertebral soft tissue edema noted as well as endplate irregularity in this patient with a history of L5-S1 discitis. PARASPINAL SOFT TISSUES: As above. OTHER FINDINGS: None. IMPRESSION: 1. Irregular changes at the endplates of L5-S1 and associated prevertebral edema and disc height loss correspond to the patient's reported history of discitis. Follow-up MRI without contrast is advised if there is clinical concern for residual discitis as this exam does not completely exclude it. 2. Multilevel degenerative central canal stenoses and neural foraminal stenoses at the mid to inferior lumbar spine. Straightened curvature.
[2018-05-13] MEDS: Cefepime 2 GM in Sodium Chloride 0.9% 100 ML IVPB SCH (21:14)
[2018-05-14] MEDS ORDERED: Gentamicin 420 MG in Sodium Chloride 0.9% 100 ML IVPB SCH (03:00)
[2018-05-14] MEDS: Dextrose 5%/Lactated Ringer's 1,000 ML IV SCH ×2 (03:41→20:15)
[2018-05-14 07:34] LABS: BASO % 0.5 % (0.0-2.0); EOS % 0.2 % (0.0-4.0); HEMOGLOBIN 9.3 g/dL (12.0-18.0); LYMPH # 0.5 K/uL (1.0-4.3); LYMPH % 24.1 % (20.0-40.0); MEAN CELL VOLUME 81.9 fl (80.0-94.0); MEAN CORPUSCULAR HEMOGLOBIN 27.2 pg (27.0-31.0); MEAN CORPUSCULAR HGB CONC 33.2 g/dL (33.0-37.0); MEAN PLATELET VOLUME 8.5 fl (7.2-11.7); MONO # 0.2 K/uL (0.0-0.8); MONO % 10.8 % (0.0-10.0); NEUT # 1.2 K/uL (1.8-7.0); NEUT % 64.4 % (50.0-75.0); NRBC % 0.3 % (0.0-0.0); RBC 3.43 Mil/uL (4.40-5.90); RED CELL DISTRIBUTION WIDTH 14.8 % (11.5-14.5)
[2018-05-14 07:37] LABS: WHITE BLOOD COUNT 1.9 K/uL (4.8-10.8)
[2018-05-14] MEDS: Albuterol-Ipratrop 3 mg / 0.5 (3 ml) UD INH SCH ×3 (08:04→18:59)
[2018-05-14 08:24] LABS: ALB/GLOB RATIO 0.9 (1.0-2.1); ALBUMIN 3.2 g/dL (3.5-5.0); ALT/SGPT 35 U/L (21-72); AST/SGOT 41 U/L (17-59); BLOOD UREA NITROGEN 4 mg/dl (9-20); CALCIUM 8.3 mg/dL (8.4-10.2); GFR NON-AFRICAN AMERICAN > 60
[2018-05-14] MEDS: Enoxaparin 40 mg Syringe SC SCH (09:27)
[2018-05-14] MEDS: guaiFENesin DM 200 mg-20 mg/10 ml UD PO SCH ×4 (09:28→21:48)
[2018-05-14] MEDS: Cefepime 2 GM in Sodium Chloride 0.9% 100 ML IVPB SCH ×2 (10:47→21:48)
[2018-05-14] MEDS ORDERED: Potassium Chloride 20 mEq ER Tab PO ONE (11:30)
[2018-05-14] MEDS: Potassium CL 10mEq/100ml 100 ML IVPB SCH (12:20)
[2018-05-14 14:39] LABS: HEMOGLOBIN 9.6 g/dL (12.0-18.0); MEAN CELL VOLUME 81.3 fl (80.0-94.0); MEAN CORPUSCULAR HEMOGLOBIN 27.3 pg (27.0-31.0); MEAN CORPUSCULAR HGB CONC 33.6 g/dL (33.0-37.0); RBC 3.5 Mil/uL (4.40-5.90); RED CELL DISTRIBUTION WIDTH 14.7 % (11.5-14.5); WHITE BLOOD COUNT 2.4 K/uL (4.8-10.8)
[2018-05-14 18:31] LABS: BLOOD UREA NITROGEN 5 mg/dl (9-20); CALCIUM 8.5 mg/dL (8.4-10.2); GFR NON-AFRICAN AMERICAN > 60
[2018-05-14] MEDS: Potassium Chloride 20 mEq ER Tab PO SCH (21:55)
[2018-05-15] MEDS: Dextrose 5%/Lactated Ringer's 1,000 ML IV SCH ×3 (00:13→18:45)
[2018-05-15] MEDS: Albuterol-Ipratrop 3 mg / 0.5 (3 ml) UD INH SCH ×4 (07:18→19:03)
[2018-05-15 08:06] LABS: BLOOD UREA NITROGEN 5 mg/dl (9-20); CALCIUM 8.5 mg/dL (8.4-10.2); GFR NON-AFRICAN AMERICAN > 60
[2018-05-15 08:19] LABS: BASO % 0.6 % (0.0-2.0); EOS % 1.6 % (0.0-4.0); HEMOGLOBIN 9.1 g/dL (12.0-18.0); LYMPH # 0.7 K/uL (1.0-4.3); LYMPH % 32.8 % (20.0-40.0); MEAN CELL VOLUME 81.2 fl (80.0-94.0); MEAN CORPUSCULAR HEMOGLOBIN 27.7 pg (27.0-31.0); MEAN CORPUSCULAR HGB CONC 34.1 g/dL (33.0-37.0); MEAN PLATELET VOLUME 7.6 fl (7.2-11.7); MONO # 0.3 K/uL (0.0-0.8); MONO % 15.2 % (0.0-10.0); NEUT # 1.1 K/uL (1.8-7.0); NEUT % 49.8 % (50.0-75.0); NRBC % 0.6 % (0.0-0.0); RBC 3.3 Mil/uL (4.40-5.90); RED CELL DISTRIBUTION WIDTH 14.7 % (11.5-14.5); WHITE BLOOD COUNT 2.2 K/uL (4.8-10.8)
[2018-05-15] MEDS: guaiFENesin DM 200 mg-20 mg/10 ml UD PO SCH ×4 (08:30→22:30)
[2018-05-15] MEDS: Potassium Chloride 20 mEq ER Tab PO SCH (08:31)
[2018-05-15] MEDS: Cefepime 2 GM in Sodium Chloride 0.9% 100 ML IVPB SCH ×2 (10:48→21:34)
--- NOTE | 2018-05-15 12:55 | CP.PCM.PN ---
Subjective - Date & Time of Evaluation Date of Evaluation: 05/15/18 Time of Evaluation: 07:00 - Subjective Subjective: fever persists despite IV rx awake alert c/o of back pain Objective - Vital Signs/Intake and Output Vital Signs (last 24 hours): Temp Pulse Resp BP Pulse Ox 99.8 F H 97 H 20 116/68 96 05/15/18 09:00 05/15/18 09:00 05/15/18 09:00 05/15/18 09:00 05/15/18 09:00 - Medications Medications: Current Medications Acetaminophen (Tylenol 325mg Tab) 650 mg PO Q4 PRN PRN Reason: Fever >100.4 F Last Admin: 05/15/18 08:27 Dose: 650 mg Albuterol/Ipratropium (Duoneb 3 Mg/0.5 Mg (3 Ml) Ud) 3 ml INH RQID [facility] Last Admin: 05/15/18 11:09 Dose: 3 ml Enoxaparin Sodium (Lovenox) 40 mg SC DAILY [facility]; Protocol Last Admin: 05/14/18 09:27 Dose: 40 mg Guaifenesin/Dextromethorphan (Robitussin Dm) 10 ml PO QID [facility] Last Admin: 05/15/18 08:30 Dose: 10 ml Vancomycin HCl 1.25 gm/ Sodium (Chloride) 250 mls @ 166.667 mls/hr IVPB Q12@0400,1600 [facility]; Protocol Last Admin: 05/15/18 05:30 Dose: 166.667 mls/hr Cefepime HCl 2 gm/ Sodium (Chloride) 100 mls @ 100 mls/hr IVPB Q12 [facility]; Protocol Last Admin: 05/15/18 10:48 Dose: 100 mls/hr Dextrose/Lactated Ringer's (Dextrose 5%/Lactated Ringer's) 1,000 mls @ 100 mls /hr IV .Q10H [facility] Stop: 05/17/18 20:10 Last Admin: 05/15/18 06:00 Dose: Not Given Potassium Chloride (K-Dur 20 Meq Er Tab) 40 meq PO DAILY [facility] Last Admin: 05/15/18 08:31 Dose: 40 meq - Labs Labs: 05/15/18 05:30 05/15/18 05:30 - Constitutional Appears: Non-toxic, Chronically Ill - Head Exam Head Exam: NORMOCEPHALIC - Eye Exam Eye Exam: absent: Scleral icterus - ENT Exam ENT Exam: Mucous Membranes Dry - Neck Exam Neck Exam: absent: Lymphadenopathy - Respiratory Exam Respiratory Exam: Decreased Breath Sounds - Cardiovascular Exam Cardiovascular Exam: REGULAR RHYTHM - GI/Abdominal Exam GI & Abdominal Exam: Distended, Soft - Rectal Exam Rectal Exam: Deferred - Exam Exam: NORMAL INSPECTION - Extremities Exam Extremities Exam: absent: Pedal Edema - Back Exam Back Exam: absent: CVA tenderness (L), CVA tenderness (R) - Neurological Exam Neurological Exam: Alert, Awake, Oriented x3 - Psychiatric Exam Psychiatric exam: Depressed - Skin Skin Exam: Dry Assessment and Plan (1) HCAP (healthcare-associated pneumonia) Status: Acute (2) Opiate dependence Status: Acute (3) Osteomyelitis of lumbar spine Status: Acute (4) Septic discitis of lumbar region Status: Acute - Assessment and Plan (Free Text) Assessment: persistent fever CXR repeated consider MRI spine to r/o abscess cultures all neg thus far IV antibiotics to continue
[2018-05-15] MEDS: Enoxaparin 40 mg Syringe SC SCH (14:59)
[2018-05-15] MEDS: Lidocaine 5% Patch TD SCH ×2 (16:24→18:47)
--- NOTE | 2018-05-15 17:42 | RAD ---
Date of service: 05/15/2018 HISTORY: Dx:PNA COMPARISON: No prior. TECHNIQUE: Chest PA and lateral FINDINGS: LUNGS: No acute infiltrate bilaterally. Linear atelectasis or fibrosis in the left base. PLEURA: No significant pleural effusion identified. No pneumothorax apparent. CARDIOVASCULAR: Calcific atherosclerotic changes are seen related to the thoracic aorta. Normal cardiac size. No pulmonary vascular congestion. OSSEOUS STRUCTURES: No significant abnormalities. VISUALIZED UPPER ABDOMEN: Normal. OTHER FINDINGS: None. IMPRESSION: Linear atelectasis or fibrosis left base. No acute infiltrate bilaterally. No pulmonary vascular congestion or pleural effusion bilaterally.
[2018-05-16] MEDS: Dextrose 5%/Lactated Ringer's 1,000 ML IV SCH ×4 (00:09→21:30)
[2018-05-16 06:40] LABS: BASO % 0.4 % (0.0-2.0); EOS # 0.1 K/uL (0.0-0.7); EOS % 3.3 % (0.0-4.0); HEMOGLOBIN 9.2 g/dL (12.0-18.0); LYMPH # 0.7 K/uL (1.0-4.3); LYMPH % 30.4 % (20.0-40.0); MEAN CELL VOLUME 81.1 fl (80.0-94.0); MEAN CORPUSCULAR HEMOGLOBIN 27.3 pg (27.0-31.0); MEAN CORPUSCULAR HGB CONC 33.7 g/dL (33.0-37.0); MEAN PLATELET VOLUME 7.4 fl (7.2-11.7); MONO # 0.4 K/uL (0.0-0.8); MONO % 14.6 % (0.0-10.0); NEUT # 1.3 K/uL (1.8-7.0); NEUT % 51.3 % (50.0-75.0); NRBC % 0.1 % (0.0-0.0); RBC 3.38 Mil/uL (4.40-5.90); RED CELL DISTRIBUTION WIDTH 14.8 % (11.5-14.5); WHITE BLOOD COUNT 2.5 K/uL (4.8-10.8)
[2018-05-16 07:36] LABS: ALB/GLOB RATIO 0.8 (1.0-2.1); ALBUMIN 3.2 g/dL (3.5-5.0); ALT/SGPT 34 U/L (21-72); AST/SGOT 42 U/L (17-59); BLOOD UREA NITROGEN 8 mg/dl (9-20); CALCIUM 8.9 mg/dL (8.4-10.2); GFR NON-AFRICAN AMERICAN > 60
[2018-05-16] MEDS: Albuterol-Ipratrop 3 mg / 0.5 (3 ml) UD INH SCH ×4 (07:57→19:30)
[2018-05-16] MEDS: Lidocaine 5% Patch TD SCH (08:51)
[2018-05-16] MEDS: Cefepime 2 GM in Sodium Chloride 0.9% 100 ML IVPB SCH ×2 (08:53→21:23)
[2018-05-16] MEDS: guaiFENesin DM 200 mg-20 mg/10 ml UD PO SCH ×4 (08:53→21:30)
[2018-05-16] MEDS: Potassium Chloride 20 mEq ER Tab PO SCH (09:35)
--- NOTE | 2018-05-16 10:33 | CP.PCM.PN ---
Subjective - Date & Time of Evaluation Date of Evaluation: 05/14/18 Time of Evaluation: 11:00 - Subjective Subjective: Patient has cough Complains of a lot of back pain CT scan showed disciitis of L5S1 Has no fever. Objective - Vital Signs/Intake and Output Vital Signs (last 24 hours): Temp Pulse Resp BP Pulse Ox 97.8 F 85 20 125/73 96 05/16/18 09:14 05/16/18 09:14 05/16/18 09:14 05/16/18 09:14 05/16/18 09:14 - Medications Medications: Current Medications Acetaminophen (Tylenol 325mg Tab) 650 mg PO Q4 PRN PRN Reason: Fever >100.4 F Last Admin: 05/15/18 08:27 Dose: 650 mg Acetaminophen (Tylenol 325mg Tab) 650 mg PO Q4 PRN PRN Reason: Pain, Mild (1-3) Last Admin: 05/15/18 23:31 Dose: 650 mg Albuterol/Ipratropium (Duoneb 3 Mg/0.5 Mg (3 Ml) Ud) 3 ml INH RQID [facility] Last Admin: 05/16/18 07:57 Dose: 3 ml Guaifenesin/Dextromethorphan (Robitussin Dm) 10 ml PO QID [facility] Last Admin: 05/16/18 08:53 Dose: 10 ml Vancomycin HCl 1.25 gm/ Sodium (Chloride) 250 mls @ 166.667 mls/hr IVPB Q12@0400,1600 [facility]; Protocol Last Admin: 05/16/18 04:50 Dose: 166.667 mls/hr Cefepime HCl 2 gm/ Sodium (Chloride) 100 mls @ 100 mls/hr IVPB Q12 [facility]; Protocol Last Admin: 05/16/18 08:53 Dose: 100 mls/hr Dextrose/Lactated Ringer's (Dextrose 5%/Lactated Ringer's) 1,000 mls @ 100 mls/hr IV .Q10H [facility] Stop: 05/17/18 20:10 Last Admin: 05/16/18 02:00 Dose: Not Given Lidocaine (Lidoderm) 1 ea TD DAILY [facility] Last Admin: 05/16/18 08:51 Dose: 1 ea Potassium Chloride (K-Dur 20 Meq Er Tab) 40 meq PO DAILY [facility] Last Admin: 05/16/18 09:35 Dose: Not Given - Labs Labs: 05/16/18 05:45 05/16/18 05:45 - Head Exam Head Exam: NORMAL INSPECTION - Eye Exam Eye Exam: Normal appearance - ENT Exam ENT Exam: Mucous Membranes Moist - Respiratory Exam Respiratory Exam: Clear to Ausculation Bilateral - Cardiovascular Exam Cardiovascular Exam: REGULAR RHYTHM - GI/Abdominal Exam GI & Abdominal Exam: Normal Bowel Sounds - Back Exam Additional comments: tenderness on the lower back Assessment and Plan (1) Lower back pain Status: Acute (2) Discitis of lumbosacral region Status: Acute (3) Leukocytopenia, unspecified Status: Acute (4) Hypokalemia Status: Acute (5) Right lower lobe pneumonia Status: Acute - Assessment and Plan (Free Text) Plan: Cont meds Cont IV antib iotics Phys therapy pain meds.
--- NOTE | 2018-05-16 10:36 | CP.PCM.PN ---
Subjective - Date & Time of Evaluation Date of Evaluation: 05/15/18 Time of Evaluation: 17:30 - Subjective Subjective: Patient continues to have pain in the lower back Noted disciitis of L5S1 Has no fever. WBC is 2.1 Objective - Vital Signs/Intake and Output Vital Signs (last 24 hours): Temp Pulse Resp BP Pulse Ox 97.8 F 85 20 125/73 96 05/16/18 09:14 05/16/18 09:14 05/16/18 09:14 05/16/18 09:14 05/16/18 09:14 - Medications Medications: Current Medications Acetaminophen (Tylenol 325mg Tab) 650 mg PO Q4 PRN PRN Reason: Fever >100.4 F Last Admin: 05/15/18 08:27 Dose: 650 mg Acetaminophen (Tylenol 325mg Tab) 650 mg PO Q4 PRN PRN Reason: Pain, Mild (1-3) Last Admin: 05/15/18 23:31 Dose: 650 mg Albuterol/Ipratropium (Duoneb 3 Mg/0.5 Mg (3 Ml) Ud) 3 ml INH RQID [facility] Last Admin: 05/16/18 07:57 Dose: 3 ml Guaifenesin/Dextromethorphan (Robitussin Dm) 10 ml PO QID [facility] Last Admin: 05/16/18 08:53 Dose: 10 ml Vancomycin HCl 1.25 gm/ Sodium (Chloride) 250 mls @ 166.667 mls/hr IVPB Q12@0400,1600 [facility]; Protocol Last Admin: 05/16/18 04:50 Dose: 166.667 mls/hr Cefepime HCl 2 gm/ Sodium (Chloride) 100 mls @ 100 mls/hr IVPB Q12 [facility]; Protocol Last Admin: 05/16/18 08:53 Dose: 100 mls/hr Dextrose/Lactated Ringer's (Dextrose 5%/Lactated Ringer's) 1,000 mls @ 100 mls/hr IV .Q10H [facility] Stop: 05/17/18 20:10 Last Admin: 05/16/18 02:00 Dose: Not Given Lidocaine (Lidoderm) 1 ea TD DAILY [facility] Last Admin: 05/16/18 08:51 Dose: 1 ea Potassium Chloride (K-Dur 20 Meq Er Tab) 40 meq PO DAILY [facility] Last Admin: 05/16/18 09:35 Dose: Not Given - Labs Labs: 05/16/18 05:45 05/16/18 05:45 - Head Exam Head Exam: NORMAL INSPECTION - Eye Exam Eye Exam: Normal appearance - ENT Exam ENT Exam: Mucous Membranes Moist - Respiratory Exam Respiratory Exam: Clear to Ausculation Bilateral - Cardiovascular Exam Cardiovascular Exam: REGULAR RHYTHM - GI/Abdominal Exam GI & Abdominal Exam: Normal Bowel Sounds Assessment and Plan (1) Lower back pain Status: Acute (2) Discitis of lumbosacral region Status: Acute (3) Leukocytopenia, unspecified Status: Acute (4) Hypokalemia Status: Acute (5) Right lower lobe pneumonia Status: Acute - Assessment and Plan (Free Text) Plan: Cont medsw Cont tx Lidoderm patch cont meds Cont Phys therapy TCU eval
--- NOTE | 2018-05-16 11:45 | RAD ---
Date of service: 05/15/2018 HISTORY: Dx: PNA COMPARISON: No prior. TECHNIQUE: Bilateral decubitus views of the chest been submitted for interpretation. FINDINGS: LUNGS: No gross infiltrates bilaterally. PLEURA: No significant pleural effusion identified. No pneumothorax apparent. CARDIOVASCULAR: Calcific atherosclerotic changes are seen related to the thoracic aorta. Normal cardiac size. No pulmonary vascular congestion. OSSEOUS STRUCTURES: No significant abnormalities. VISUALIZED UPPER ABDOMEN: Normal. OTHER FINDINGS: None. IMPRESSION: No free pleural effusions bilaterally.
--- NOTE | 2018-05-16 23:05 | CP.PCM.PN ---
Subjective - Date & Time of Evaluation Date of Evaluation: 05/16/18 Time of Evaluation: 09:30 - Subjective Subjective: Pt was seen and assessed at bedside. No new complaints at this time, other than chronic back pain. Pt has a hx of lumbar spine discitis, as recently as 01/2018. Currently on antibiotic therapy for HCAP. No fever/chills noted. Objective - Vital Signs/Intake and Output Vital Signs (last 24 hours): Temp Pulse Resp BP Pulse Ox 97.5 F L 96 H 18 118/73 96 05/16/18 17:00 05/16/18 17:00 05/16/18 17:00 05/16/18 17:00 05/16/18 17:00 - Medications Medications: Current Medications Acetaminophen (Tylenol 325mg Tab) 650 mg PO Q4 PRN PRN Reason: Fever >100.4 F Last Admin: 05/15/18 08:27 Dose: 650 mg Acetaminophen (Tylenol 325mg Tab) 650 mg PO Q4 PRN PRN Reason: Pain, Mild (1-3) Last Admin: 05/15/18 23:31 Dose: 650 mg Albuterol/Ipratropium (Duoneb 3 Mg/0.5 Mg (3 Ml) Ud) 3 ml INH RQID [facility] Last Admin: 05/16/18 19:30 Dose: 3 ml Guaifenesin/Dextromethorphan (Robitussin Dm) 10 ml PO QID [facility] Last Admin: 05/16/18 21:30 Dose: 10 ml Vancomycin HCl 1.25 gm/ Sodium (Chloride) 250 mls @ 166.667 mls/hr IVPB Q12@0400,1600 [facility]; Protocol Last Admin: 05/16/18 16:35 Dose: 166.667 mls/hr Cefepime HCl 2 gm/ Sodium (Chloride) 100 mls @ 100 mls/hr IVPB Q12 [facility]; Protocol Last Admin: 05/16/18 21:23 Dose: 100 mls/hr Dextrose/Lactated Ringer's (Dextrose 5%/Lactated Ringer's) 1,000 mls @ 100 mls/hr IV .Q10H [facility] Stop: 05/17/18 20:10 Last Admin: 05/16/18 21:30 Dose: 100 mls/hr Lidocaine (Lidoderm) 1 ea TD DAILY [facility] Last Admin: 05/16/18 08:51 Dose: 1 ea Potassium Chloride (K-Dur 20 Meq Er Tab) 40 meq PO DAILY [facility] Last Admin: 05/16/18 09:35 Dose: Not Given - Labs Labs: 05/16/18 05:45 05/16/18 05:45 - Constitutional Appears: Well - Head Exam Head Exam: ATRAUMATIC, NORMAL INSPECTION - Eye Exam Eye Exam: EOMI, Normal appearance Pupil Exam: NORMAL ACCOMODATION - ENT Exam ENT Exam: Mucous Membranes Moist, Normal Exam - Neck Exam Neck Exam: Full ROM, Normal Inspection - Respiratory Exam Respiratory Exam: Decreased Breath Sounds - Cardiovascular Exam Cardiovascular Exam: REGULAR RHYTHM, +S1, +S2 - GI/Abdominal Exam GI & Abdominal Exam: Soft, Normal Bowel Sounds - Extremities Exam Additional comments: painful ROM in the lower back. - Back Exam Back Exam: vertebral tenderness - Neurological Exam Neurological Exam: Alert, Awake, Oriented x3 - Psychiatric Exam Psychiatric exam: Normal Affect, Normal Mood - Skin Skin Exam: Dry, Normal Color, Warm Assessment and Plan - Assessment and Plan (Free Text) Plan: Assessment/Impression/Major Problems Now -HCAP -Currently on Vanco and Cefepime. -Monitor WBC and temps, obtain serial CXRs. -infectious disease consult input appreciated. -Lower back pain -History of Osteomyelitis and L-Spine discitis in 01/2018. -L-spine MRI without contrast ordered to R/O abscess and OM. -Afebrile at this time, WBC not elevated at present. -PT eval and screen. -pain managed through Tylenol and Lidoderm patches. -for possible TCU/sub-acute rehab.
--- NOTE | 2018-05-17 06:22 | CARD ---
APPROVED REPORT Date of service: 05/12/2018 EKG Measurement Heart [id number] <Conclusion> Sinus tachycardia Otherwise normal ECG
[2018-05-17] MEDS: Albuterol-Ipratrop 3 mg / 0.5 (3 ml) UD INH SCH ×4 (07:42→19:14)
[2018-05-17] MEDS: Dextrose 5%/Lactated Ringer's 1,000 ML IV SCH ×2 (08:19→20:55)
[2018-05-17] MEDS: Lidocaine 5% Patch TD SCH (08:26)
[2018-05-17] MEDS: guaiFENesin DM 200 mg-20 mg/10 ml UD PO SCH ×4 (08:28→21:00)
[2018-05-17] MEDS: Cefepime 2 GM in Sodium Chloride 0.9% 100 ML IVPB SCH ×2 (08:33→21:00)
[2018-05-17] MEDS: Potassium Chloride 20 mEq ER Tab PO SCH (08:35)
--- NOTE | 2018-05-17 11:22 | CP.PCM.PN ---
Subjective - Date & Time of Evaluation Date of Evaluation: 05/17/18 Time of Evaluation: 09:00 - Subjective Subjective: comfortable nad await MRI Objective - Vital Signs/Intake and Output Vital Signs (last 24 hours): Temp Pulse Resp BP Pulse Ox 97.6 F 82 18 111/72 100 05/17/18 08:25 05/17/18 08:25 05/17/18 08:25 05/17/18 08:25 05/17/18 08:25 - Medications Medications: Current Medications Acetaminophen (Tylenol 325mg Tab) 650 mg PO Q4 PRN PRN Reason: Fever >100.4 F Last Admin: 05/15/18 08:27 Dose: 650 mg Acetaminophen (Tylenol 325mg Tab) 650 mg PO Q4 PRN PRN Reason: Pain, Mild (1-3) Last Admin: 05/17/18 08:17 Dose: 650 mg Albuterol/Ipratropium (Duoneb 3 Mg/0.5 Mg (3 Ml) Ud) 3 ml INH RQID [facility] Last Admin: 05/17/18 07:42 Dose: 3 ml Guaifenesin/Dextromethorphan (Robitussin Dm) 10 ml PO QID [facility] Last Admin: 05/17/18 08:28 Dose: 10 ml Vancomycin HCl 1.25 gm/ Sodium (Chloride) 250 mls @ 166.667 mls/hr IVPB Q12@0400,1600 [facility]; Protocol Last Admin: 05/17/18 03:39 Dose: 166.667 mls/hr Cefepime HCl 2 gm/ Sodium (Chloride) 100 mls @ 100 mls/hr IVPB Q12 [facility]; Protocol Last Admin: 05/17/18 08:33 Dose: 100 mls/hr Dextrose/Lactated Ringer's (Dextrose 5%/Lactated Ringer's) 1,000 mls @ 100 mls/hr IV .Q10H [facility] Stop: 05/17/18 20:10 Last Admin: 05/17/18 08:19 Dose: Not Given Lidocaine (Lidoderm) 1 ea TD DAILY [facility] Last Admin: 05/17/18 08:26 Dose: 1 ea Potassium Chloride (K-Dur 20 Meq Er Tab) 40 meq PO DAILY [facility] Last Admin: 05/17/18 08:35 Dose: 40 meq - Labs Labs: 05/16/18 05:45 05/16/18 05:45 - Constitutional Appears: Non-toxic, Chronically Ill - Head Exam Head Exam: NORMOCEPHALIC - Eye Exam Eye Exam: absent: Scleral icterus - ENT Exam ENT Exam: Mucous Membranes Dry - Neck Exam Neck Exam: absent: Lymphadenopathy - Respiratory Exam Respiratory Exam: Decreased Breath Sounds - Cardiovascular Exam Cardiovascular Exam: REGULAR RHYTHM - GI/Abdominal Exam GI & Abdominal Exam: Distended, Soft. absent: Tenderness - Rectal Exam Rectal Exam: Deferred - Exam Exam: NORMAL INSPECTION - Extremities Exam Extremities Exam: Pedal Edema - Back Exam Back Exam: absent: CVA tenderness (L), CVA tenderness (R) - Neurological Exam Neurological Exam: Alert, Awake, Oriented x3 Assessment and Plan (1) HCAP (healthcare-associated pneumonia) Status: Acute (2) Opiate dependence Status: Acute (3) Osteomyelitis of lumbar spine Status: Acute (4) Septic discitis of lumbar region Status: Acute - Assessment and Plan (Free Text) Assessment: for mri LS spine
--- NOTE | 2018-05-17 13:22 | MRI ---
Date of service: 05/17/2018 PROCEDURE: MR LUMBAR SPINE WITHOUT CONTRAST HISTORY: Rule out abscess COMPARISON: Comparison made with prior CT scan of the lumbar spine dated 05/13/2018.. TECHNIQUE: Multiecho multiplanar sequences were performed through the lumbar spine without the use of intravenous contrast. FINDINGS: The current study reveals what appears represent a discitis osteomyelitis involving the L5-S1 disc space and adjoining endplates respectively clearly there is disc space narrowing with increased signal in the residual disc space as well.. There is apparent mild circumferential paraspinal soft tissue changes prominent most pronounced at the level of the disc space and tapering above and below the disc space level. Facet joints also hypertrophic at this level.. The exit foramina are narrowed bilaterally right greater than left. There is disc space narrowing seen at the L4-L5 level with increased T2 signal in the posterior disc space margin at midline. Edema is also seen in the adjoining endplates. Findings likely represent contiguous spread of discitis osteomyelitis. There is also what probably represents a small central and bilateral disc protrusion (possibly infected disc) which compresses the ventral surfaces of the thecal sac and results in mild bilateral lateral recess narrowing.. In addition, there may also be what could represent superior subligamentous extension of infected disc and/or localized phlegmon along the mid posterior of aspect of the L4 vertebral body segment extending superiorly from the L4-L5 disc space level which also results in mild flattening of the ventral surface of the thecal sac. Facet joints also hypertrophic with bilateral foraminal narrowing left greater than right. There is also mild paraspinal phlegmonous changes seen at the L4-L5 level At the L3-L4 level, there is disc desiccation however disc space height is relatively maintained. Minimal broad-based bulge of the posterior annulus extends into the proximal inferior margins of both exit foramina where the disc bulging is most pronounced. Facets are slightly hypertrophic. Central canal appears adequate. Exit foramina adequate. Suspect mild early edema within the posterior margin of the L3 vertebral body segment. The remaining levels exhibit mild age related disc desiccation. No disc herniation or significant disc bulge. The overall central bony canal and exit foramina appear adequate despite mild facet arthropathy at each level.. OTHER FINDINGS: There may be a small amount of left-sided perinephric fluid. IMPRESSION: Changes consistent with discitis osteomyelitis at the L5-S1 and L4-L5 levels. There is mild circumferential paraspinal soft tissue phlegmonous changes at the L5-S1 and L4-L5 levels. The the There is a small central and bilateral disc protrusion at the L4-L5 level possibly representing infected disc with what could represent superior subligamentous extension of disc and/or phlegmon extending superiorly from the level of the L4-L5 disc space to the L3-L4 level. The changes do result in mild compressive effects on the ventral surface of the thecal sac maximally at the disc space level. Both levels exhibit bilateral foraminal stenosis. Suspect mild early edema within the posterior margin of the L3 vertebral body segment. See above discussion for additional details and findings.
--- NOTE | 2018-05-17 23:03 | CP.PCM.PN ---
Subjective - Date & Time of Evaluation Date of Evaluation: 05/17/18 Time of Evaluation: 11:20 - Subjective Subjective: Patient remains stable MRI showed disciitis and OM of L5S1 has no fever started on PT Objective - Vital Signs/Intake and Output Vital Signs (last 24 hours): Temp Pulse Resp BP Pulse Ox 98.1 F 80 18 115/73 97 05/17/18 16:21 05/17/18 16:21 05/17/18 16:21 05/17/18 16:21 05/17/18 16:21 - Medications Medications: Current Medications Acetaminophen (Tylenol 325mg Tab) 650 mg PO Q4 PRN PRN Reason: Fever >100.4 F Last Admin: 05/17/18 16:57 Dose: 650 mg Acetaminophen (Tylenol 325mg Tab) 650 mg PO Q4 PRN PRN Reason: Pain, Mild (1-3) Last Admin: 05/17/18 08:17 Dose: 650 mg Albuterol/Ipratropium (Duoneb 3 Mg/0.5 Mg (3 Ml) Ud) 3 ml INH RQID [facility] Last Admin: 05/17/18 19:14 Dose: 3 ml Guaifenesin/Dextromethorphan (Robitussin Dm) 10 ml PO QID [facility] Last Admin: 05/17/18 21:00 Dose: 10 ml Vancomycin HCl 1.25 gm/ Sodium (Chloride) 250 mls @ 166.667 mls/hr IVPB Q12@0400,1600 [facility]; Protocol Last Admin: 05/17/18 17:04 Dose: 166.667 mls/hr Cefepime HCl 2 gm/ Sodium (Chloride) 100 mls @ 100 mls/hr IVPB Q12 [facility]; Protocol Last Admin: 05/17/18 21:00 Dose: 100 mls/hr Lidocaine (Lidoderm) 1 ea TD DAILY [facility] Last Admin: 05/17/18 08:26 Dose: 1 ea Potassium Chloride (K-Dur 20 Meq Er Tab) 40 meq PO DAILY [facility] Last Admin: 05/17/18 08:35 Dose: 40 meq - Labs Labs: 05/16/18 05:45 05/16/18 05:45 - Head Exam Head Exam: NORMAL INSPECTION - Eye Exam Eye Exam: Normal appearance - ENT Exam ENT Exam: Mucous Membranes Moist - Respiratory Exam Respiratory Exam: Clear to Ausculation Bilateral - Cardiovascular Exam Cardiovascular Exam: REGULAR RHYTHM - GI/Abdominal Exam GI & Abdominal Exam: Normal Bowel Sounds Assessment and Plan (1) Lower back pain Status: Acute (2) Discitis of lumbosacral region Status: Acute (3) Leukocytopenia, unspecified Status: Acute (4) Hypokalemia Status: Acute (5) Right lower lobe pneumonia Status: Acute (6) Osteomyelitis of vertebra, lumbosacral region Status: Acute - Assessment and Plan (Free Text) Plan: Cont meds Cont PT Iv antibiotics for longer duration
[2018-05-18] MEDS: Albuterol-Ipratrop 3 mg / 0.5 (3 ml) UD INH SCH ×4 (08:06→19:51)
[2018-05-18] MEDS: Lidocaine 5% Patch TD SCH (09:38)
[2018-05-18] MEDS: guaiFENesin DM 200 mg-20 mg/10 ml UD PO SCH ×4 (09:39→23:12)
[2018-05-18] MEDS: Cefepime 2 GM in Sodium Chloride 0.9% 100 ML IVPB SCH ×2 (09:39→23:12)
[2018-05-18] MEDS: Potassium Chloride 20 mEq ER Tab PO SCH (09:39)
[2018-05-18 12:59] LABS: % CD4 (T HELPER CELL) 48 Percent (30-61); % CD8 (SUPPRESSOR T CELL) 29 Percent (12-42); ABSOLUTE CD4 CELLS 424 Cells/mcL (490-1740); ABSOLUTE CD8 CELLS 253 Cells/mcL (180-1170); ABSOLUTE LYMPHOCYTES 877 Cells/mcL (850-3900); HELPER/SUPPRESSOR RATIO 1.67 Ratio (0.86-5.00)
--- NOTE | 2018-05-18 13:06 | CP.PCM.PN ---
Subjective - Date & Time of Evaluation Date of Evaluation: 05/18/18 Time of Evaluation: 07:00 - Subjective Subjective: 57 year old male private patient of Dr Carmona with a history of frequent IV heroin drug abuse presents to the ED for evaluation of back pain and cough. Referred for ID evaluation for developing pneumonia Has hx of diskitis treated at and [facility] for 8 weeks with IV antibiotics At that time grew Strep Mitis LILIAN however was negative Was treated with IV Rocephin and improved but now returns with similar complaints and follow up MRI suggests presence of Phlegmon / diskitis / OM Objective - Vital Signs/Intake and Output Vital Signs (last 24 hours): Temp Pulse Resp BP Pulse Ox 98.7 F 74 20 134/82 95 05/18/18 08:37 05/18/18 08:37 05/18/18 08:37 05/18/18 08:37 05/18/18 08:37 - Medications Medications: Current Medications Acetaminophen (Tylenol 325mg Tab) 650 mg PO Q4 PRN PRN Reason: Fever >100.4 F Last Admin: 05/17/18 16:57 Dose: 650 mg Acetaminophen (Tylenol 325mg Tab) 650 mg PO Q4 PRN PRN Reason: Pain, Mild (1-3) Last Admin: 05/18/18 04:36 Dose: 650 mg Albuterol/Ipratropium (Duoneb 3 Mg/0.5 Mg (3 Ml) Ud) 3 ml INH RQID [facility] Last Admin: 05/18/18 11:31 Dose: 3 ml Guaifenesin/Dextromethorphan (Robitussin Dm) 10 ml PO QID [facility] Last Admin: 05/18/18 12:46 Dose: 10 ml Vancomycin HCl 1.25 gm/ Sodium (Chloride) 250 mls @ 166.667 mls/hr IVPB Q12@0400,1600 [facility]; Protocol Last Admin: 05/18/18 03:31 Dose: 166.667 mls/hr Cefepime HCl 2 gm/ Sodium (Chloride) 100 mls @ 100 mls/hr IVPB Q12 [facility]; Protocol Last Admin: 05/18/18 09:39 Dose: 100 mls/hr Lidocaine (Lidoderm) 1 ea TD DAILY [facility] Last Admin: 05/18/18 09:38 Dose: 1 ea Potassium Chloride (K-Dur 20 Meq Er Tab) 40 meq PO DAILY [facility] Last Admin: 05/18/18 09:39 Dose: 40 meq - Labs Labs: 05/16/18 05:45 05/16/18 05:45 - Constitutional Appears: Non-toxic, Chronically Ill - Head Exam Head Exam: NORMOCEPHALIC - Eye Exam Eye Exam: absent: Scleral icterus - ENT Exam ENT Exam: Mucous Membranes Dry - Neck Exam Neck Exam: absent: Lymphadenopathy - Respiratory Exam Respiratory Exam: Decreased Breath Sounds - Cardiovascular Exam Cardiovascular Exam: REGULAR RHYTHM - GI/Abdominal Exam GI & Abdominal Exam: Distended, Soft. absent: Tenderness - Rectal Exam Rectal Exam: Deferred - Exam Exam: NORMAL INSPECTION - Extremities Exam Extremities Exam: absent: Pedal Edema - Back Exam Back Exam: absent: CVA tenderness (L), CVA tenderness (R), paraspinal tenderness - Neurological Exam Neurological Exam: Alert, Awake, Oriented x3 - Psychiatric Exam Psychiatric exam: Depressed - Skin Skin Exam: Dry Assessment and Plan (1) HCAP (healthcare-associated pneumonia) Status: Acute (2) Opiate dependence Status: Acute (3) Osteomyelitis of lumbar spine Status: Acute (4) Septic discitis of lumbar region Status: Acute - Assessment and Plan (Free Text) Assessment: 57 year old male private patient of Dr Carmona with a history of frequent IV heroin drug abuse presents to the ED for evaluation of back pain and cough. Referred for ID evaluation for developing pneumonia Has hx of diskitis treated at and [facility] for 8 weeks with IV antibiotics At that time grew Strep Mitis LILIAN however was negative Was treated with IV Rocephin and improved but now returns with similar complaints and follow up MRI suggests presence of Phlegmon / diskitis / OM MRI findings may be nonspecific in view of previous infection - however would like Neurosurg opinion May need to cont IV antibiotics and consider d rainage if feasible since patient presented with fever back opain and leukocytosis off antibiotics ? treatment failure
[2018-05-19 06:10] LABS: HEMOGLOBIN 9.4 g/dL (12.0-18.0); MEAN CELL VOLUME 82.7 fl (80.0-94.0); MEAN CORPUSCULAR HEMOGLOBIN 26.8 pg (27.0-31.0); MEAN CORPUSCULAR HGB CONC 32.4 g/dL (33.0-37.0); RBC 3.52 Mil/uL (4.40-5.90); RED CELL DISTRIBUTION WIDTH 15.2 % (11.5-14.5); WHITE BLOOD COUNT 3.4 K/uL (4.8-10.8)
[2018-05-19 06:38] LABS: ALB/GLOB RATIO 0.9 (1.0-2.1); ALBUMIN 3.7 g/dL (3.5-5.0); ALT/SGPT 49 U/L (21-72); AST/SGOT 77 U/L (17-59); BLOOD UREA NITROGEN 12 mg/dl (9-20); CALCIUM 9.3 mg/dL (8.4-10.2); GFR NON-AFRICAN AMERICAN > 60
[2018-05-19] MEDS: Albuterol-Ipratrop 3 mg / 0.5 (3 ml) UD INH SCH ×4 (07:27→19:13)
[2018-05-19] MEDS: Lidocaine 5% Patch TD SCH (09:53)
[2018-05-19] MEDS: Potassium Chloride 20 mEq ER Tab PO SCH (09:53)
[2018-05-19] MEDS: Cefepime 2 GM in Sodium Chloride 0.9% 100 ML IVPB SCH ×2 (09:55→20:56)
[2018-05-19] MEDS: guaiFENesin DM 200 mg-20 mg/10 ml UD PO SCH ×3 (09:55→21:05)
[2018-05-19] MEDS ORDERED: Lidocaine 1% Inj (20ml) ONE (12:25)
--- NOTE | 2018-05-19 13:31 | PCM.SURG1 ---
Surgeon's Initial Post Op Note - Surgeon's Notes Surgeon: Randy Granados MD Management Lead: NONE Type of Anesthesia: Local Pre-Operative Diagnosis: Infection Operative Findings: US showed patent right basilic vein. Post-Operative Diagnosis: Infection Operation Performed: Single lumen picc right arm. Specimen/Specimens Removed: none Estimated Blood Loss: EBL {In ML}: 2 Blood Products Given: N/A Drains Used: No Drains Post-Op Condition: Fair Date of Surgery/Procedure: 05/19/18 Time of Surgery/Procedure: 13:25
--- NOTE | 2018-05-19 13:39 | VASCULAR ---
PROCEDURE: Date of procedure: 05/19/2018 Procedure: 1. Placement of a right arm PICC with ultrasound and fluoroscopic guidance, CPT 75249 2. PICC tip confirmation with spot radiograph and is in the superior vena cava Medications: 1 percent lidocaine Total Fluoro time: 2.8 Seconds Radiation: 0.28 MGy EBL: 2 cc HISTORY: Infection requiring long-term IV antibiotics TECHNIQUE: Following informed consent and procedure time-out, the patient was placed supine on the interventional table and the right arm prepped and draped in the usual sterile fashion. Ultrasound showed a patent and compressible right basilic vein. After the skin was anesthetized with lidocaine, the basilic vein was accessed with micro micropuncture technique using ultrasound guidance. A guidewire was then advanced under fluoroscopic guidance into the superior vena cava. An image documenting ultrasound guidance for vascular access was permanently saved. The length of the single-lumen 4 [place] PICC was trimmed to 35 centimeters and advanced through a peel-away sheath. The PICC was position with tip of PICC confirm a spot radiograph the superior vena cava. The PICC was secured to the patient's skin. The PICC was flushed. A biopatch and sterile dressing was applied. IMPRESSION: Placement of a single-lumen 4 [place] PICC trimmed to 35 centimeters via right basilic vein. The tip of the PICC is confirmed with spot radiograph and is in the superior vena cava.
--- NOTE | 2018-05-19 15:25 | PQF ---
PROVIDER RESPONSE TEXT: Suspected aspiration pneumonia REVIEWER QUERY TEXT: Conflicting Documentation Clarification Aspiration Pneumonia versus Lobar Pneumonia. ER documentation of Given patient's presentation of over dose, provider suspects aspiration pneumonia.Patient had recent hospital admission, may also relate t o healthcare-associated pneumonia. Versus Attending documentation of Right lower lobe pneumonia -- Other, please specify WBC:9.5->1.9->2.4->2.2->2.5 Pulse:158->114->79->110->102->102->102->93 05/12: Temp.: 98.2->99.2->96->103->101.8->100---05/13: 103-.102.4->102.4 --05/15 Temp max:102.8 IV: Vanvomycin and Cefepime 05/13 CT Chest: Somewhat suboptimal pulmonary arterial enhancement with no gross pulmonary embolus thomas ntified as discussed above.Lesser evaluation of the segmental pulmonary artery branches.Village perf usion lung scan available for follow-up if clinically.Potential early development of right lower lobe pulmonary infiltrate. Remaining lung alegria clear of active airspace disease.2.7 mm noncalcified nodule right upper lobe The patient's Clinical Indicators include: --- Query created by: Billie Davidson on 05/17/2018 7:57 AM Electronically signed by: Jesus Manuel Carmona MD 05/19/2018 3:22 PM
--- NOTE | 2018-05-19 16:14 | CP.PCM.PN ---
Subjective - Date & Time of Evaluation Date of Evaluation: 05/19/18 Time of Evaluation: 09:00 - Subjective Subjective: afebrile alert NAD Objective - Vital Signs/Intake and Output Vital Signs (last 24 hours): Temp Pulse Resp BP Pulse Ox 97.6 F 85 18 122/73 94 L 05/19/18 12:47 05/19/18 12:47 05/19/18 12:47 05/19/18 12:47 05/19/18 08:38 - Medications Medications: Current Medications Acetaminophen (Tylenol 325mg Tab) 650 mg PO Q4 PRN PRN Reason: Fever >100.4 F Last Admin: 05/17/18 16:57 Dose: 650 mg Acetaminophen (Tylenol 325mg Tab) 650 mg PO Q4 PRN PRN Reason: Pain, Mild (1-3) Last Admin: 05/19/18 16:06 Dose: 650 mg Albuterol/Ipratropium (Duoneb 3 Mg/0.5 Mg (3 Ml) Ud) 3 ml INH RQID [facility] Last Admin: 05/19/18 15:03 Dose: 3 ml Guaifenesin/Dextromethorphan (Robitussin Dm) 10 ml PO QID [facility] Last Admin: 05/19/18 16:07 Dose: 10 ml Vancomycin HCl 1.25 gm/ Sodium (Chloride) 250 mls @ 166.667 mls/hr IVPB Q1 2@0400,1600 [facility]; Protocol Last Admin: 05/19/18 05:14 Dose: 166.667 mls/hr Cefepime HCl 2 gm/ Sodium (Chloride) 100 mls @ 100 mls/hr IVPB Q12 [facility]; Protocol Last Admin: 05/19/18 09:55 Dose: 100 mls/hr Lidocaine (Lidoderm) 1 ea TD DAILY [facility] Last Admin: 05/19/18 09:53 Dose: 1 ea Potassium Chloride (K-Dur 20 Meq Er Tab) 40 meq PO DAILY [facility] Last Admin: 05/19/18 09:53 Dose: 40 meq - Labs Labs: 05/19/18 05:50 05/19/18 05:50 - Constitutional Appears: Non-toxic, Chronically Ill - Head Exam Head Exam: NORMOCEPHALIC - Eye Exam Eye Exam: absent: Scleral icterus - ENT Exam ENT Exam: Mucous Membranes Dry - Neck Exam Neck Exam: absent: Lymphadenopathy - Respiratory Exam Respiratory Exam: Decreased Breath Sounds - Cardiovascular Exam Cardiovascular Exam: REGULAR RHYTHM - GI/Abdominal Exam GI & Abdominal Exam: Distended - Rectal Exam Rectal Exam: Deferred - Exam Exam: NORMAL INSPECTION - Extremities Exam Extremities Exam: absent: Pedal Edema - Back Exam Back Exam: absent: CVA tenderness (L), CVA tenderness (R) - Neurological Exam Neurological Exam: Alert, Awake, Oriented x3 Assessment and Plan (1) HCAP (healthcare-associated pneumonia) Status: Acute (2) Opiate dependence Status: Acute (3) Osteomyelitis of lumbar spine Status: Acute (4) Septic discitis of lumbar region Status: Acute - Assessment and Plan (Free Text) Assessment: await neurosurg eval cont IV rx
[2018-05-19] MEDS: Naproxen 500 MG TAB PO SCH ×2 (17:41→21:04)
--- NOTE | 2018-05-19 18:52 | CP.PCM.CON ---
History of Present Illness - History of Present Illness History of Present Illness: Neurosurgical consult: Dr. Gorman Patient is a 57 y/o homeless male, with history of IV drug use and ETOH abuse, complaining of progressive lower back pain for the past few weeks. Over the past week he has had much difficulty weight bearing and transferring secondary to the pain. A few months ago, he was treated with IV antibiotics through PICC due to lumbar spine infection for 2 months. The pain is currently moderate, constant and dull in quality. The pain is associated with a fever that he had during admission. His pain has improved during this admission and he is able transfer and ambulate to the bathroom. He denies any radiation of pain/numbness/tingling/bowel and bladder dysfunction. He currently denies CP/SOB/N/V/D/dysuria/melena. Review of Systems - Review of Systems All systems: reviewed and no additional remarkable complaints except Review of Systems: as per HPI Past Patient History - Infectious Disease Hx of Infectious Diseases: None - Past Medical History & Family History Past Medical History?: Yes Past Family History: Reviewed and not pertinent - Past Social History Alcohol: Other (patient is an alcoholic) Drugs: Other (Heroin ) - CARDIAC Hx Hypertension: No - NEUROLOGICAL Hx Seizures: No - HEENT Hx HEENT Problems: No - RENAL Hx Chronic Kidney Disease: No - ENDOCRINE/METABOLIC Hx Endocrine Disorders: No - HEMATOLOGICAL/ONCOLOGICAL Hx Human Immunodeficiency Virus (HIV): No - INTEGUMENTARY Hx Dermatological Problems: No - MUSCULOSKELETAL/RHEUMATOLOGICAL Hx Musculoskeletal Disorders: Yes Hx Falls: Yes Other/Comment: Discitis LS spine - GASTROINTESTINAL Hx Gastrointestinal Disorders: No - GENITOURINARY/GYNECOLOGICAL Hx Sexually Transmitted Disorders: No - PSYCHIATRIC Hx Anxiety: Yes - SURGICAL HISTORY Hx Surgeries: No - ANESTHESIA Hx Anesthesia: No Hx Anesthesia Reactions: No Hx Malignant Hyperthermia: No Has any member of the family had a problem w/ anesthesia?: No Meds Allergies/Adverse Reactions: Allergies Allergy/AdvReac Type Severity Reaction Status Date / Time Penicillins Allergy ITCHING Verified 04/21/18 12:35 - Medications Medications: Current Medications Acetaminophen (Tylenol 325mg Tab) 650 mg PO Q4 PRN PRN Reason: Fever >100.4 F Last Admin: 05/17/18 16:57 Dose: 650 mg Acetaminophen (Tylenol 325mg Tab) 650 mg PO Q4 PRN PRN Reason: Pain, Mild (1-3) Last Admin: 05/19/18 16:06 Dose: 650 mg Albuterol/Ipratropium (Duoneb 3 Mg/0.5 Mg (3 Ml) Ud) 3 ml INH RQID [facility] Last Admin: 05/19/18 15:03 Dose: 3 ml Guaifenesin/Dextromethorphan (Robitussin Dm) 10 ml PO QID [facility] Last Admin: 05/19/18 16:07 Dose: 10 ml Vancomycin HCl 1.25 gm/ Sodium (Chloride) 250 mls @ 166.667 mls/hr IVPB Q12@0400,1600 [facility]; Protocol Last Admin: 05/19/18 16:55 Dose: 166.667 mls/hr Cefepime HCl 2 gm/ Sodium (Chloride) 100 mls @ 100 mls/hr IVPB Q12 [facility]; Protocol Last Admin: 05/19/18 09:55 Dose: 100 mls/hr Lidocaine (Lidoderm) 1 ea TD DAILY [facility] Last Admin: 05/19/18 09:53 Dose: 1 ea Naproxen (Naproxen) 500 mg PO Q12 [facility] Last Admin: 05/19/18 17:41 Dose: 500 mg Potassium Chloride (K-Dur 20 Meq Er Tab) 40 meq PO DAILY [facility] Last Admin: 05/19/18 09:53 Dose: 40 meq Trazodone HCl (Desyrel) 150 mg PO HS PRN PRN Reason: Insomnia Physical Exam - Constitutional Appears: Well, No Acute Distress - Head Exam Head Exam: ATRAUMATIC, NORMOCEPHALIC - Eye Exam Eye Exam: EOMI, Normal appearance - ENT Exam ENT Exam: Mucous Membranes Moist - Respiratory Exam Respiratory Exam: NORMAL BREATHING PATTERN - GI/Abdominal Exam GI & Abdominal Exam: Soft. absent: Tenderness - Extremities Exam Extremities exam: Positive for: normal inspection - Back Exam Back exam: paraspinal tenderness (bilateral), vertebral tenderness (lumbar) Additional comments: no lesions, no masses, no erythema neg clonus +SLR LLE - Neurological Exam Neurological exam: Alert, CN II-XII Intact, Oriented x3 - Psychiatric Exam Psychiatric exam: Normal Affect, Normal Mood - Skin Skin Exam: Normal Color, Warm Results - Vital Signs Recent Vital Signs: Last Vital Signs Temp 97.4 F L 05/19/18 16:37 Pulse 84 05/19/18 16:37 Resp 20 05/19/18 16:37 BP 130/70 05/19/18 16:37 Pulse Ox 97 05/19/18 16:37 - Labs Result Diagrams: 05/19/18 05:50 05/19/18 05:50 Labs: Laboratory Results - last 24 hr 05/19/18 05/19/18 05/19/18 05:50 05:50 16:23 WBC 3.4 L RBC 3.52 L Hgb 9.4 L Hct 29.1 L MCV 82.7 MCH 26.8 L MCHC 32.4 L RDW 15.2 H Plt Count 167 ESR 95 H Sodium 137 Potassium 4.2 Chloride 101 Carbon Dioxide 29 Anion Gap 11 BUN 12 Creatinine 0.7 L Est GFR ( Amer) > 60 Est GFR (Non-Af Amer) > 60 Random Glucose 95 Calcium 9.3 Total Bilirubin 0.5 AST 77 H D ALT 49 Alkaline Phosphatase 129 H D C-Reactive Protein 7.20 Total Protein 8.0 Albumin 3.7 Globulin 4.3 H Albumin/Globulin Ratio 0.9 L Vancomycin Trough 11.7 H - Impressions Impression: Accession No. : [id number] Patient Name / ID : ARNAUD ENGEL / [id number] Exam Date : 05/17/2018 08:32:41 ( Approved ) Study Comment : Sex / Age : M / 57Y Creator : Joel Gustafson MD Dictator : Joel Gustafson MD Design Manager : [employer] Unloader : Joel Gustafson MD Approver2 : Report Date : 05/17/2018 13:16:40 My Comment : Date of service: 05/17/2018 PROCEDURE: MR LUMBAR SPINE WITHOUT CONTRAST HISTORY: Rule out abscess COMPARISON: Comparison made with prior CT scan of the lumbar spine dated 05/13/2018.. TECHNIQUE: Multiecho multiplanar sequences were performed through the lumbar spine without the use of intravenous contrast. FINDINGS: The current study reveals what appears represent a discitis osteomyelitis involving the L5-S1 disc space and adjoining endplates respectively clearly there is disc space narrowing with increased signal in the residual disc space as well.. There is apparent mild circumferential paraspinal soft tissue changes prominent most pronounced at the level of the disc space and tapering above and below the disc space level. Facet joints also hypertrophic at this level.. The exit foramina are narrowed bilaterally right greater than left. There is disc space narrowing seen at the L4-L5 level with increased T2 signal in the posterior disc space margin at midline. Edema is also seen in the adjoining endplates. Findings likely represent contiguous spread of discitis osteomyelitis. There is also what probably represents a small central and bilateral disc protrusion (possibly infected disc) which compresses the ventral surfaces of the thecal sac and results in mild bilateral lateral recess narrowing.. In addition, there may also be what could represent superior subligamentous extension of infected disc and/or localized phlegmon along the mid posterior of aspect of the L4 vertebral body segment extending superiorly from the L4-L5 disc space level which also results in mild flattening of the ventral surface of the thecal sac. Facet joints also hypertrophic with bilateral foraminal narrowing left greater than right. There is also mild paraspinal phlegmonous changes seen at the L4-L5 level At the L3-L4 level, there is disc desiccation however disc space height is relatively maintained. Minimal broad-based bulge of the posterior annulus exten ds into the proximal inferior margins of both exit foramina where the disc bulging is most pronounced. Facets are slightly hypertrophic. Central canal appears adequate. Exit foramina adequate. Suspect mild early edema within the posterior margin of the L3 vertebral body segment. The remaining levels exhibit mild age related disc desiccation. No disc herniation or significant disc bulge. The overall central bony canal and exit foramina appear adequate despite mild facet arthropathy at each level.. OTHER FINDINGS: There may be a small amount of left-sided perinephric fluid. IMPRESSION: Changes consistent with discitis osteomyelitis at the L5-S1 and L4-L5 levels. There is mild circumferential paraspinal soft tissue phlegmonous changes at the L5-S1 and L4-L5 levels. The the There is a small central and bilateral disc protrusion at the L4-L5 level possibly representing infected disc with what could represent superior subligamentous extension of disc and/or phlegmon extending superiorly from the level of the L4-L5 disc space to the L3-L4 level. The changes do result in mild compressive effects on the ventral surface of the thecal sac maximally at the disc space level. Both levels exhibit bilateral foraminal stenosis. Suspect mild early edema within the posterior margin of the L3 vertebral body segment. See above discussion for additional details and findings. Assessment & Plan (1) Discitis of lumbosacral region Assessment and Plan: -Dr. Gorman recommends IR aspiration for culture -IV Abx as per ID -pain control -PT/OT -above d/w Dr. Gorman in agreement Status: Acute
[2018-05-20] MEDS: Albuterol-Ipratrop 3 mg / 0.5 (3 ml) UD INH SCH ×3 (07:37→15:20)
[2018-05-20 08:41] VITALS: O2SAT 96
--- NOTE | 2018-05-20 08:45 | CP.PCM.PN ---
Subjective - Date & Time of Evaluation Date of Evaluation: 05/20/18 Time of Evaluation: 08:42 - Subjective Subjective: Patient states the pain in his back is the same. No new complaints. Objective - Vital Signs/Intake and Output Vital Signs (last 24 hours): Temp Pulse Resp BP Pulse Ox 97.4 F L 86 20 116/66 96 05/20/18 08:40 05/20/18 08:40 05/20/18 08:40 05/20/18 08:40 05/20/18 08:40 - Medications Medications: Current Medications Acetaminophen (Tylenol 325mg Tab) 650 mg PO Q4 PRN PRN Reason: Fever >100.4 F Last Admin: 05/17/18 16:57 Dose: 650 mg Acetaminophen (Tylenol 325mg Tab) 650 mg PO Q4 PRN PRN Reason: Pain, Mild (1-3) Last Admin: 05/19/18 16:06 Dose: 650 mg Albuterol/Ipratropium (Duoneb 3 Mg/0.5 Mg (3 Ml) Ud) 3 ml INH RQID [facility] Last Admin: 05/20/18 07:37 Dose: 3 ml Guaifenesin/Dextromethorphan (Robitussin Dm) 10 ml PO QID [facility] Last Admin: 05/19/18 21:05 Dose: 10 ml Vancomycin HCl 1.25 gm/ Sodium (Chloride) 250 mls @ 166.667 mls/hr IVPB Q12@0400,1600 [facility]; Protocol Last Admin: 05/20/18 04:23 Dose: 166.667 mls/hr Cefepime HCl 2 gm/ Sodium (Chloride) 100 mls @ 100 mls/hr IVPB Q12 [facility]; P rotocol Last Admin: 05/19/18 20:56 Dose: 100 mls/hr Lidocaine (Lidoderm) 1 ea TD DAILY [facility] Last Admin: 05/19/18 09:53 Dose: 1 ea Naproxen (Naproxen) 500 mg PO Q12 [facility] Last Admin: 05/19/18 21:04 Dose: 500 mg Naproxen (Naproxen) 500 mg PO BID [facility] Potassium Chloride (K-Dur 20 Meq Er Tab) 40 meq PO DAILY [facility] Last Admin: 05/19/18 09:53 Dose: 40 meq Trazodone HCl (Desyrel) 150 mg PO HS PRN PRN Reason: Insomnia Last Admin: 05/20/18 00:12 Dose: 150 mg Trazodone HCl (Desyrel) 150 mg PO HS PRN PRN Reason: Insomnia - Labs Labs: 05/19/18 05:50 05/19/18 05:50 - Constitutional Appears: No Acute Distress - Back Exam Back Exam: tenderness - Neurological Exam Neurological Exam: Alert, Awake, Oriented x3 - Psychiatric Exam Psychiatric exam: Normal Affect, Normal Mood - Skin Skin Exam: Dry, Intact, Normal Color, Warm Assessment and Plan (1) Discitis of lumbosacral region Assessment & Plan: Per Dr. Gorman, recommend IR aspiration for culture, consultation requested No neurosurgical intervention planned at this time PICC in place, antibiotics per ID d/w Dr. Gorman, agrees with above Status: Acute
[2018-05-20] MEDS ORDERED: Naproxen 500 MG TAB PO SCH (09:00)
[2018-05-20] MEDS: Cefepime 2 GM in Sodium Chloride 0.9% 100 ML IVPB SCH (10:11)
[2018-05-20] MEDS: Lidocaine 5% Patch TD SCH (10:13)
[2018-05-20] MEDS: Naproxen 500 MG TAB PO SCH (10:15)
[2018-05-20] MEDS: Potassium Chloride 20 mEq ER Tab PO SCH (10:15)
[2018-05-20] MEDS: guaiFENesin DM 200 mg-20 mg/10 ml UD PO SCH ×2 (10:17→15:09)
--- NOTE | 2018-05-20 11:52 | CP.PCM.PCO ---
Assessment/Plan - Assessment/Plan Assessment (Free Text): Dr. Gorman requesting IR aspiration and culture. Spoke to Dr. Granados in IR who reviewed MRI, there is nothing to aspirate. Picc line inserted by IR, Dr. Granados. Dr. Tyler made aware of same, patient to continue same IV antibiotics x 6 weeks. Patient seen on rounds with Dr. Carmona, stable, cleared for d/c. Patient aware of plan, agrees to go to [facility] to complete antibiotics. - Consults Consult Orders: Consultations
--- NOTE | 2018-05-20 13:40 | CP.PCM.PCO ---
Assessment/Plan - Assessment/Plan Assessment (Free Text): EKG repeated due to concern of ST elevation on EKG that was done on 05/16/17. New EKG show ST102 with EKG changes concerning for pericarditis. Dr. Carmona made aware, consult with Dr. Villatoro. Patient seen and evaluated by Dr. Villatoro at bedside. Per Dr. Villatoro no concern for pericarditi or TX. All EKGs reviewed by Dr. Villatoro, patient is cleared from cardiac standpoint for d/c to rehab. Repeat EKG in 1 week. Patient and RN aware. - Consults Consult Orders: Consultations
--- NOTE | 2018-05-20 13:54 | CP.PCM.PN ---
Subjective - Date & Time of Evaluation Date of Evaluation: 05/20/18 Time of Evaluation: 07:00 - Subjective Subjective: seen on rounds cardio on board cont iv rx Objective - Vital Signs/Intake and Output Vital Signs (last 24 hours): Temp Pulse Resp BP Pulse Ox 97.4 F L 86 20 116/66 96 05/20/18 08:40 05/20/18 11:19 05/20/18 08:40 05/20/18 08:40 05/20/18 08:40 - Medications Medications: Current Medications Acetaminophen (Tylenol 325mg Tab) 650 mg PO Q4 PRN PRN Reason: Fever >100.4 F Last Admin: 05/17/18 16:57 Dose: 650 mg Acetaminophen (Tylenol 325mg Tab) 650 mg PO Q4 PRN PRN Reason: Pain, Mild (1-3) Last Admin: 05/19/18 16:06 Dose: 650 mg Albuterol/Ipratropium (Duoneb 3 Mg/0.5 Mg (3 Ml) Ud) 3 ml INH RQID [facility] Last Admin: 05/20/18 11:00 Dose: 3 ml Guaifenesin/Dextromethorphan (Robitussin Dm) 10 ml PO QID [facility] Last Admin: 05/20/18 10:17 Dose: 10 ml Vancomycin HCl 1.25 gm/ Sodium (Chloride) 250 mls @ 166.667 mls/hr IVPB Q12@0400,1600 [facility]; Protocol Last Admin: 05/20/18 04:23 Dose: 166.667 mls/hr Cefepime HCl 2 gm/ Sodium (Chloride) 100 mls @ 100 mls/hr IVPB Q12 [facility]; Protocol Last Admin: 05/20/18 10:11 Dose: 100 mls/hr Lidocaine (Lidoderm) 1 ea TD DAILY [facility] Last Admin: 05/20/18 10:13 Dose: 1 ea Naproxen (Naproxen) 500 mg PO Q12 [facility] Last Admin: 05/20/18 10:15 Dose: 500 mg Potassium Chloride (K-Dur 20 Meq Er Tab) 40 meq PO DAILY [facility] Last Admin: 05/20/18 10:15 Dose: 40 meq Trazodone HCl (Desyrel) 150 mg PO HS PRN PRN Reason: Insomnia - Labs Labs: 05/19/18 05:50 05/19/18 05:50 - Constitutional Appears: Non-toxic, Chronically Ill - Head Exam Head Exam: NORMOCEPHALIC - Eye Exam Eye Exam: absent: Scleral icterus - ENT Exam ENT Exam: Mucous Membranes Dry - Neck Exam Neck Exam: absent: Lymphadenopathy - Respiratory Exam Respiratory Exam: Decreased Breath Sounds - Cardiovascular Exam Cardiovascular Exam: REGULAR RHYTHM - GI/Abdominal Exam GI & Abdominal Exam: Distended - Rectal Exam Rectal Exam: Deferred - Exam Exam: NORMAL INSPECTION - Back Exam Back Exam: absent: CVA tenderness (L), CVA tenderness (R) - Neurological Exam Neurological Exam: Alert, Awake, CN II-XII Intact Assessment and Plan (1) HCAP (healthcare-associated pneumonia) Status: Acute (2) Opiate dependence Status: Acute (3) Osteomyelitis of lumbar spine Status: Acute (4) Septic discitis of lumbar region Status: Acute - Assessment and Plan (Free Text) Assessment: d/c on IV antibiotics neurosurg follow up
--- NOTE | 2018-05-20 14:54 | CP.PCM.CON ---
History of Present Illness - History of Present Illness History of Present Illness: pt is a 57 year old male with previous psychiatric diagnosis of heroin use disorder, alcohol use disorder, medical history of Anemia, thrombocytopenia and recent hx osteomyelitis/discitis of lumbar spine that required 2 months of IV ab x (finished on 04/17/18) admitted for RLL pneumonia and back pain. pt on evaluation reported feeling down due to his medical condition, reported using cannabis and opiate to deal with the pain pt reported having early insomnia due to pain, denied any current suicidal or homicidal ideation denied perceptual disturbances Past Patient History - Infectious Disease Hx of Infectious Diseases: None - Past Medical History & Family History Past Medical History?: Yes Past Family History: Reviewed and not pertinent - Past Social History Alcohol: Other (patient is an alcoholic) Drugs: Other (Heroin ) - CARDIAC Hx Hypertension: No - NEUROLOGICAL Hx Seizures: No - HEENT Hx HEENT Problems: No - RENAL Hx Chronic Kidney Disease: No - ENDOCRINE/METABOLIC Hx Endocrine Disorders: No - HEMATOLOGICAL/ONCOLOGICAL Hx Human Immunodeficiency Virus (HIV): No - INTEGUMENTARY Hx Dermatological Problems: No - MUSCULOSKELETAL/RHEUMATOLOGICAL Hx Musculoskeletal Disorders: Yes Hx Falls: Yes Other/Comment: Discitis LS spine - GASTROINTESTINAL Hx Gastrointestinal Disorders: No - GENITOURINARY/GYNECOLOGICAL Hx Sexually Transmitted Disorders: No - PSYCHIATRIC Hx Anxiety: Yes - SURGICAL HISTORY Hx Surgeries: No - ANESTHESIA Hx Anesthesia: No Hx Anesthesia Reactions: No Hx Malignant Hyperthermia: No Has any member of the family had a problem w/ anesthesia?: No Meds Home Medications: Home Medication List Medication Instructions Recorded Confirmed Type Cefepime IV 2 gm in NS [Maxipime 2 gm IVPB Q12 42 Days bag 05/20/18 Rx 2gm] Vancomycin HCl in Dextrose 5 % 1.25 gm IV Q12 42 Days plast..bag 05/20/18 Rx [Vancomycin 1.25 Gram/250Ml-D5w] Allergies/Adverse Reactions: Allergies Allergy/AdvReac Type Severity Reaction Status Date / Time Penicillins Allergy ITCHING Verified 04/21/18 12:35 - Medications Medications: Current Medications Acetaminophen (Tylenol 325mg Tab) 650 mg PO Q4 PRN PRN Reason: Fever >100.4 F Last Admin: 05/17/18 16:57 Dose: 650 mg Acetaminophen (Tylenol 325mg Tab) 650 mg PO Q4 PRN PRN Reason: Pain, Mild (1-3) Last Admin: 05/19/18 16:06 Dose: 650 mg Albuterol/Ipratropium (Duoneb 3 Mg/0.5 Mg (3 Ml) Ud) 3 ml INH RQID [facility] Last Admin: 05/20/18 11:00 Dose: 3 ml Guaifenesin/Dextromethorphan (Robitussin Dm) 10 ml PO QID [facility] Last Admin: 05/20/18 10:17 Dose: 10 ml Vancomycin HCl 1.25 gm/ Sodium (Chloride) 250 mls @ 166.667 mls/hr IVPB Q12@0400,1600 [facility]; Protocol Last Admin: 05/20/18 04:23 Dose: 166.667 mls/hr Cefepime HCl 2 gm/ Sodium (Chloride) 100 mls @ 100 mls/hr IVPB Q12 [facility]; Protocol Last Admin: 05/20/18 10:11 Dose: 100 mls/hr Lidocaine (Lidoderm) 1 ea TD DAILY [facility] Last Admin: 05/20/18 10:13 Dose: 1 ea Naproxen (Naproxen) 500 mg PO Q12 [facility] Last Admin: 05/20/18 10:15 Dose: 500 mg Potassium Chloride (K-Dur 20 Meq Er Tab) 40 meq PO DAILY [facility] Last Admin: 05/20/18 10:15 Dose: 40 meq Trazodone HCl (Desyrel) 150 mg PO HS PRN PRN Reason: Insomnia Physical Exam - Psychiatric Exam Additional comments: pt seen in bed cooperative good eye contact, speech normal thought process goal directed , mood tired affect appropriate denied ay current suicidal or homicidal ideation denied perceptual disturbances, alert awake ox3 Results - Vital Signs Recent Vital Signs: Last Vital Signs Temp 97.4 F L 05/20/18 08:40 Pulse 86 05/20/18 11:19 Resp 20 05/20/18 08:40 BP 116/66 05/20/18 08:40 Pulse Ox 96 05/20/18 08:40 - Labs Result Diagrams: 05/19/18 05:50 05/19/18 05:50 Labs: Laboratory Results - last 24 hr 05/19/18 05/19/18 05:50 16:23 C-Reactive Protein 7.20 Vancomycin Trough 11.7 H Assessment & Plan - Assessment and Plan (Free Text) Assessment: substance induced mood disorder opiate use disorder cannabis use disorder Plan: recommend increasing trazodone to 200 mg qhs pt psychiatricallly cleared for discharge on medical clearance
[2018-05-20 16:27] VITALS: BP 121/72; PULSE 99; RESP 18; TEMP 97.6
--- NOTE | 2018-05-20 20:13 | CARD ---
APPROVED REPORT Date of service: 05/20/2018 EKG Measurement Heart [id number] <Conclusion> Sinus tachycardia Diffuse ST elevation, likely from Acute pericarditis Abnormal ECG
--- NOTE | 2018-05-22 21:51 | CP.PCM.PN ---
Subjective - Date & Time of Evaluation Date of Evaluation: 05/18/18 Time of Evaluation: 11:00 - Subjective Subjective: Patient remains stable Still with some pain on the lower back where he has the disciitis and Om Has no fever, Has good sleep and appetite. Objective - Vital Signs/Intake and Output Vital Signs (last 24 hours): Temp Pulse Resp BP Pulse Ox 97.6 F 99 H 18 121/72 96 05/20/18 16:26 05/20/18 16:26 05/20/18 16:26 05/20/18 16:26 05/20/18 16:26 - Labs Labs: 05/19/18 05:50 05/19/18 05:50 - Head Exam Head Exam: NORMAL INSPECTION - Eye Exam Eye Exam: Normal appearance - ENT Exam ENT Exam: Mucous Membranes Moist - Respiratory Exam Respiratory Exam: Clear to Ausculation Bilateral - Cardiovascular Exam Cardiovascular Exam: REGULAR RHYTHM - GI/Abdominal Exam GI & Abdominal Exam: Normal Bowel Sounds - Neurological Exam Neurological Exam: Awake, Oriented x3 - Psychiatric Exam Psychiatric exam: Normal Mood Assessment and Plan (1) Lower back pain Status: Acute (2) Discitis of lumbosacral region Status: Acute (3) Leukocytopenia, unspecified Status: Acute (4) Hypokalemia Status: Acute (5) Right lower lobe pneumonia Status: Acute (6) Osteomyelitis of vertebra, lumbosacral region Status: Acute - Assessment and Plan (Free Text) Plan: Cont meds Cont tx May need 6 to 8 weeks of iv antibiotics will refer to subacute rehab for PT and IV antibiotics schedule for PICC line
--- NOTE | 2018-05-22 21:54 | CP.PCM.PN ---
Subjective - Date & Time of Evaluation Date of Evaluation: 05/19/18 Time of Evaluation: 11:00 - Subjective Subjective: Patient remains well Has no chest pain or SOB Still with lower back pain Has no fever. Objective - Vital Signs/Intake and Output Vital Signs (last 24 hours): Temp Pulse Resp BP Pulse Ox 97.6 F 99 H 18 121/72 96 05/20/18 16:26 05/20/18 16:26 05/20/18 16:26 05/20/18 16:26 05/20/18 16:26 - Labs Labs: 05/19/18 05:50 05/19/18 05:50 - Head Exam Head Exam: NORMAL INSPECTION - Eye Exam Eye Exam: Normal appearance - ENT Exam ENT Exam: Mucous Membranes Moist - Respiratory Exam Respiratory Exam: Clear to Ausculation Bilateral - Cardiovascular Exam Cardiovascular Exam: REGULAR RHYTHM - GI/Abdominal Exam GI & Abdominal Exam: Normal Bowel Sounds - Neurological Exam Neurological Exam: Awake, Oriented x3 Assessment and Plan (1) Lower back pain Status: Acute (2) Discitis of lumbosacral region Status: Acute (3) Leukocytopenia, unspecified Status: Acute (4) Hypokalemia Status: Acute (5) Right lower lobe pneumonia Status: Acute (6) Osteomyelitis of vertebra, lumbosacral region Status: Acute - Assessment and Plan (Free Text) Plan: Cont meds Cont tx Cont IV antibiiotics cont PT subacute rehab for Iv antibiotics
--- NOTE | 2018-05-22 21:57 | CP.PCM.DIS ---
Provider - Provider Date of Admission: 05/13/18 00:35 Attending physician: Jesus Manuel Carmona MD Consults: 05/13/18 07:00 Infectious Disease Consult Routine Comment: Consulting Provider: Deon Tyler Consulting Physician: Deon Tyler Reason for Consult: pneumonia 05/14/18 01:54 Social Work Referral Routine Comment: homeless, smoker/substance abuse Physician Instructions: Reason For Exam: homeless, smoker/ ETOH/substance abuse 05/18/18 12:09 Neuro Surgery Consult Routine Comment: Consulting Provider: Zaid Gorman Consulting Physician: Zaid Gorman Reason for Consult: Discitis, OM lumbar spine 05/19/18 16:37 Psychiatry Consult Routine Comment: Consulting Provider: Nadja Byren Consulting Physician: Nadja Byrne Reason for Consult: Monitoring of psych 05/20/18 13:18 Cardiology Consult Routine Comment: Consulting Provider: oDroteo Villatoro Consulting Physician: Doroteo Villatoro Reason for Consult: EKG changes Time Spent in preparation of Discharge (in minutes): 30 Diagnosis - Discharge Diagnosis (1) Lower back pain Status: Acute (2) Discitis of lumbosacral region Status: Acute (3) Leukocytopenia, unspecified Status: Acute (4) Hypokalemia Status: Acute (5) Right lower lobe pneumonia Status: Acute (6) Osteomyelitis of vertebra, lumbosacral region Status: Acute Hospital Course - Lab Results Lab Results: Micro Results 05/13/18 00:50 Blood Blood Culture - Final NO GROWTH AFTER 5 DAYS 05/13/18 00:50 Blood Gram Stain - Final TEST NOT PERFORMED Most Recent Lab Values WBC 3.4 K/uL (4.8-10.8) L 05/19/18 05:50 RBC 3.52 Mil/uL (4.40-5.90) L 05/19/18 05:50 Hgb 9.4 g/dL (12.0-18.0) L 05/19/18 05:50 Hct 29.1 % (35.0-51.0) L 05/19/18 05:50 MCV 82.7 fl (80.0-94.0) 05/19/18 05:50 MCH 26.8 pg (27.0-31.0) L 05/19/18 05:50 MCHC 32.4 g/dL (33.0-37.0) L 05/19/18 05:50 RDW 15.2 % (11.5-14.5) H 05/19/18 05:50 Plt Count 167 K/uL (130-400) 05/19/18 05:50 MPV 7.4 fl (7.2-11.7) 05/16/18 05:45 Neut % (Auto) 51.3 % (50.0-75.0) 05/16/18 05:45 Lymph % (Auto) 30.4 % (20.0-40.0) 05/16/18 05:45 [place] % (Auto) 14.6 % (0.0-10.0) H 05/16/18 05:45 Eos % (Auto) 3.3 % (0.0-4.0) 05/16/18 05:45 Baso % (Auto) 0.4 % (0.0-2.0) 05/16/18 05:45 Neut # (Auto) 1.3 K/uL (1.8-7.0) L 05/16/18 05:45 Lymph # (Auto) 0.7 K/uL (1.0-4.3) L 05/16/18 05:45 [place] # (Auto) 0.4 K/uL (0.0-0.8) 05/16/18 05:45 Eos # (Auto) 0.1 K/uL (0.0-0.7) 05/16/18 05:45 Baso # (Auto) 0.0 K/uL (0.0-0.2) 05/16/18 05:45 ESR 95 mm/hr (0-20) H 05/19/18 05:50 pCO2 40 mm/Hg (35-45) 05/12/18 19:34 pO2 52 mm/Hg (80-100) L 05/12/18 19:34 HCO3 25.2 mmol/L (21-28) 05/12/18 19:34 ABG pH 7.41 (7.35-7.45) 05/12/18 19:34 ABG Total CO2 26.6 mmol/L (22-28) 05/12/18 19:34 ABG O2 Saturation 90.9 % (95-98) L 05/12/18 19:34 ABG Base Excess 0.7 mmol/L (-2.0-3.0) 05/12/18 19:34 Dylan Test Yes 05/12/18 19:34 ABG Potassium 3.3 mmol/L (3.6-5.2) L 05/12/18 19:34 A-a O2 Difference 48.0 mm/Hg 05/12/18 19:34 Sodium 136.0 mmol/L (132-148) 05/12/18 19:34 Chloride 105.0 mmol/L (98-107) 05/12/18 19:34 Glucose 99 mg/dL (75-110) 05/12/18 19:34 Lactate 1.7 mmol/L (0.7-2.1) 05/12/18 19:34 FiO2 21.0 % 05/12/18 19:34 Sodium 137 mmol/l (132-148) 05/19/18 05:50 Potassium 4.2 MMOL/L (3.6-5.0) 05/19/18 05:50 Chloride 101 mmol/L (98-107) 05/19/18 05:50 Carbon Dioxide 29 mmol/L (22-30) 05/19/18 05:50 Anion Gap 11 (10-20) 05/19/18 05:50 BUN 12 mg/dl (9-20) 05/19/18 05:50 Creatinine 0.7 mg/dl (0.8-1.5) L 05/19/18 05:50 Est GFR ( Amer) > 60 05/19/18 05:50 Est GFR (Non-Af Amer) > 60 05/19/18 05:50 Random Glucose 95 mg/dL (75-110) 05/19/18 05:50 Calcium 9.3 mg/dL (8.4-10.2) 05/19/18 05:50 Phosphorus 3.2 mg/dl (2.5-4.5) 05/14/18 05:30 Magnesium 1.4 MG/DL (1.6-2.3) L 05/14/18 05:30 Total Bilirubin 0.5 mg/dl (0.2-1.3) 05/19/18 05:50 AST 77 U/L (17-59) H D 05/19/18 05:50 ALT 49 U/L (21-72) 05/19/18 05:50 Alkaline Phosphatase 129 U/L (38-126) H D 05/19/18 05:50 C-Reactive Protein 7.20 mg/L (0.0-9.9) 05/19/18 05:50 Total Protein 8.0 G/DL (6.3-8.2) 05/19/18 05:50 Albumin 3.7 g/dL (3.5-5.0) 05/19/18 05:50 Globulin 4.3 gm/dL (2.2-3.9) H 05/19/18 05:50 Albumin/Globulin Ratio 0.9 (1.0-2.1) L 05/19/18 05:50 Procalcitonin 0.09 NG/ML (0.19-0.49) L 05/13/18 14:00 Arterial Blood Potassium 3.3 mmol/L (3.6-5.2) L 05/12/18 19:34 Vancomycin Trough 11.7 ug/mL (5.0-10.0) H 05/19/18 16:23 Urine Opiates Screen Positive (NEGATIVE) H 05/13/18 14:59 Urine Methadone Screen Negative (NEGATIVE) 05/13/18 14:59 Ur Barbiturates Screen Negative (NEGATIVE) 05/13/18 14:59 Ur Phencyclidine Scrn Negative (NEGATIVE) 05/13/18 14:59 Ur Amphetamines Screen Negative (NEGATIVE) 05/13/18 14:59 U Benzodiazepines Scrn Negative (NEGATIVE) 05/13/18 14:59 U Oth Cocaine Metabols Negative (NEGATIVE) 05/13/18 14:59 U Cannabinoids Screen Positive (NEGATIVE) H 05/13/18 14:59 Absolute Lymphs (Flow) 877 Cells/mcL (850-3900) 05/15/18 05:30 % CD4 Cells 48 Percent (30-61) 05/15/18 05:30 Absolute CD4 Count 424 Cells/mcL (490-1740) L 05/15/18 05:30 T-Help/Suppress Ratio 1.67 Ratio (0.86-5.00) 05/15/18 05:30 % CD8 Cells 29 Percent (12-42) 05/15/18 05:30 Absolute CD8 Count 253 Cells/mcL (180-1170) 01/13/19 05:30 HIV-1 Ab Rapid Screen Non reactive (NON REAC) 05/15/18 05:30 - Hospital Course Hospital Course: this is a patient who was admitted for feevr low white count pneumonia and noted to have recurrent back pain. He just had completed Iv antibiotics but MRI showed a persistent disciitis and Osteomyelitis. ID was called and started on IV antibiotics He was placed a PiCC line and arrangement was made for longer iv antibiotics. He was discharged to a subacute rehab in [place] for iv antibiotics. Discharge Exam - Head Exam Head Exam: NORMAL INSPECTION - Eye Exam Eye Exam: Normal appearance - Respiratory Exam Respiratory Exam: Clear to PA & Lateral - Cardiovascular Exam Cardiovascular Exam: REGULAR RHYTHM - GI/Abdominal Exam GI & Abdominal Exam: Normal Bowel Sounds - Neurological Exam Neurological exam: CN II-XII Intact, Oriented x3 Discharge Plan - Discharge Medications Prescriptions: Cefepime IV 2 gm in NS [Maxipime 2gm] 2 gm IVPB Q12 42 Days bag Vancomycin HCl in Dextrose 5 % [Vancomycin 1.25 Gram/250Ml-D5w] 1.25 gm IV Q12 42 Days plast..bag - Follow Up Plan Condition: FAIR Disposition: REHAB FACILITY/REHAB UNIT Instructions: Abscess Drainage, Percutaneous (DC), Community-Acquired Pneumonia, Adult (DC) Additional Instructions: follow up at [facility] 1 week Referrals: [facility] [place] [Outside] Deon Tyler MD [Staff Provider] -
== END 2018-05-20 20:05 | DRG 561 ==
LOC: H.ER 16:28 → H.ERHOLD 05-13 00:35 → H.MEDSURG1 05-13 19:00
PROVIDERS: ADMIT Family Medicine; ATTEND Family Medicine
PROC: 02HV33Z Insertion of Infusion Device into Superior Vena Cava, Percutaneous Approach (ICD-10-PCS; principal; 2018-05-19)
DX: M46.37 Infection of intervertebral disc (pyogenic), lumbosacral region (principal); J69.0 Pneumonitis due to inhalation of food and vomit; E87.6 Hypokalemia; F11.20 Opioid dependence, uncomplicated; F19.94 Other psychoactive substance use, unspecified with psychoactive substance-induced mood disorder; M46.47 Discitis, unspecified, lumbosacral region; M46.27 Osteomyelitis of vertebra, lumbosacral region; D72.819 Decreased white blood cell count, unspecified; F10.20 Alcohol dependence, uncomplicated; G89.29 Other chronic pain; Y95 Nosocomial condition; Z59.0 Homelessness; F41.9 Anxiety disorder, unspecified; Z88.0 Allergy status to penicillin; F12.90 Cannabis use, unspecified, uncomplicated